=== PATIENT | female | born 1980 | race Caucasian/White ===

== ENCOUNTER 2016-08-22 19:20 | Emergency (ER) | payer OTHER ==
[2016-08-22] MEDS ORDERED: CLINDAMYCIN 150 MG CAPSULE PO STA (19:44)
[2016-08-22] MEDS ORDERED: HYDROcod/ACETAM 5/325 MG TABLET PO STA (19:44)
[2016-08-22] MEDS ORDERED: CLINDAMYCIN 150 MG CAPSULE PO ONE (19:47)
[2016-08-22] MEDS ORDERED: HYDROcod/ACETAM 5/325 MG TABLET ONE (19:47)
== END 2016-08-22 19:54 | disposition home or self-care (01) ==
DX: K02.9 Dental caries, unspecified (principal); K08.89 Other specified disorders of teeth and supporting structures
CPT/HCPCS: 99283; A9270

== ENCOUNTER 2016-12-05 19:40 | Outpatient (CLI) | payer OTHER | END 2016-12-05 19:41 | disposition home or self-care (01) | LOC: LAB 19:40 | PROVIDERS: ATTEND Pathology Neuropathology | DX: Z01.89 Encounter for other specified special examinations (principal) | CPT/HCPCS: 36415 ==

== ENCOUNTER 2017-01-26 18:45 | Emergency (ER) | payer OTHER ==
[2017-01-26 19:09] VITALS: BP 131/87
[2017-01-26] MEDS ORDERED: HYDROcod/ACETAM 5/325 MG TABLET PO STA (19:39)
[2017-01-26] MEDS ORDERED: DEXAMETHASONE 10 MG/ML VIAL PO STA (19:39)
--- NOTE | 2017-01-26 19:41 | ED Physician Documentation ---
PD HPI BACK PAIN - Stated complaint Stated Complaint: BACK PAIN - Chief complaint Chief Complaint: Back Pain - History obtained from History obtained from: Patient, Family - History of Present Illness Timing - onset: How many hours ago (6), Today Timing - duration: Hours (6) Timing - details: Gradual onset Pain level max: 7 Pain level now: 7 Location: Lower, Right, Left Quality: Pain, Spasm, Aching, Similar to prior episodes Associated symptoms: Numbness (mild R foot earlier, now resolved.), Other ( radiates down R leg). No: Fever, Weakness, Incontinent of urine, Unable to urinate, Hematuria, Incontinent of stool Improves with: Rest Worsened by: Movement, Lifting Contributing factors: Lifting Similar symptoms before: Diagnosis (low back pain) Recently seen: Not recently seen Review of Systems Constitutional: denies: Fever, Chills Respiratory: denies: Cough GI: denies: Nausea, Vomiting, Diarrhea : denies: Now EGA Skin: denies: Rash Musculoskeletal: denies: Neck pain PD PAST MEDICAL HISTORY - Past Medical History Cardiovascular: None Respiratory: None Neuro: Headache/migraine Endocrine/Autoimmune: None GI: None 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 : None HEENT: None Psych: None Musculoskeletal: None Derm: None - Past Surgical History Past Surgical History: Yes Ortho: Other - Present Medications Home Medications: Ambulatory Orders Medication Instructions Recorded Confirmed Propranolol [Inderal] 10 mg PO HS 06/26/13 01/26/17 Dicyclomine [Bentyl] 10 mg PO QID PRN #20 capsule 01/12/16 01/26/17 Ethynodiol D-Ethinyl Estradiol 1 tab PO DAILY 04/24/16 01/26/17 [Zovia 1-35E Tablet] Hydrocodone/Acetaminophen 1 - 2 each PO Q6H PRN #14 tablet 01/26/17 [Hydrocodon-Acetaminophen 5-325] - Allergies Allergies/Adverse Reactions: Allergies Allergy/AdvReac Type Severity Reaction Status Date / Time Penicillins Allergy Severe Rash Verified 01/26/17 19:09 amoxicillin [Amoxicillin] Allergy Mild Rash Verified 01/26/17 19:09 cyclobenzaprine HCl * AdvReac Unknown Verified 01/26/17 19:09 [From Flexeril] - Social History Does the pt smoke?: No Smoking Status: Never smoker Does the pt drink ETOH?: No Does the pt have substance abuse?: No - Immunizations Immunizations are current?: Yes - POLST Patient has POLST: No PD ED PE NORMAL - Vitals Vital signs reviewed: Yes - General General: Alert and oriented X 3, No acute distress, Well developed/nourished - HEENT HEENT: PERRL, Moist mucous membranes - Neck Neck: Supple, no meningeal sign, No bony TTP - Cardiac Cardiac: RRR, Strong equal pulses - Respiratory Respiratory: No respiratory distress, Clear bilaterally - Abdomen Abdomen: Soft, Non tender, Non distended - Back Back: No spinal TTP (No midline tenderness to palpation. There is paraspinal muscle spasm bilaterally.) - Derm Derm: Warm and dry - Extremities Extremities: Other (normal bilateral lower extremity patellar and ankle jerk reflexes. Normal great toe extension bilaterally) - Neuro Neuro: Alert and oriented X 3, No motor deficit, No sensory deficit - Psych Psych: Normal mood, Normal affect Results - Vitals Vitals: Vital Signs - 24 hr 01/26/17 19:07 Temperature 36.4 C L Heart Rate 82 Respiratory 18 Rate Blood Pressure 131/87 H O2 Saturation 99 Oxygen O2 Source Room air PD MEDICAL DECISION MAKING - ED course Complexity details: re-evaluated patient, considered differential (no cauda equina, no spinal epidural abscess, no fracture, no aortic dissection or evidence of aneursym rupture), d/w patient, d/w family ED course: Patient is a 36-year-old female with acute on chronic back pain. Appears to have a sciatic component of the right lower extremity. No loss of bowel or bladder control. No saddle anesthesia. No neurological deficits. Ambulating well. States [place] has worked in the past and will place her on this for home. No evidence of cauda equina, epidural abscess. Does not use IV drugs. No fevers. Patient counseled regarding signs and symptoms for which I believe and urgent re-evaluation would be necessary. Patient with good understanding of and agreement to plan and is comfortable going home at this time This document was made in part using voice recognition software. While efforts are made to proofread this document, sound alike and grammatical errors may occur. Departure - Departure Disposition: 01 Home, Self Care Clinical Impression: Sciatica Condition: Good Instructions: ED Sciatica Follow-Up: DEMARCO YEPEZ [Primary Care Provider] - Within 1 week Prescriptions: Hydrocodone/Acetaminophen [Hydrocodon-Acetaminophen 5-325] 1 - 2 each PO Q6H PRN #14 tablet PRN Reason: pain Comments: This should improve over the next few days. Return if you worsen. Do not drink alcohol or drive while on narcotic pain medicine. Note that many narcotic pain relievers also contain tylenol/acetaminophen. Please ensure that your total dose of acetaminophen from all sources does not exceed 3 grams (3000mg) per day. You may constipated on this medication, take a stool softener such as "Colace" twice a day while you are on it. Also recommend a fahr-gbo-pfgdzoe laxative such as senna or MiraLAX any day that you do not have a bowel movement. If you received narcotic pain medication in the emergency department, do not drive or operate machinery for the next 24 hours. Discharge Date/Time: 01/26/17 19:49
[2017-01-26] MEDS ORDERED: HYDROcod/ACETAM 5/325 MG TABLET ONE (19:42)
[2017-01-26] MEDS ORDERED: CHERRY SYRUP 10 ML UDC PO ONE (19:43)
[2017-01-26] MEDS ORDERED: DEXAMETHASONE 10 MG/ML VIAL ONE (19:43)
== END 2017-01-26 19:49 | disposition home or self-care (01) ==
LOC: ED 18:45
DX: M54.41 Lumbago with sciatica, right side (principal); G89.29 Other chronic pain
CPT/HCPCS: 99283; A9270

== ENCOUNTER 2017-02-19 19:07 | Emergency (ER) | payer OTHER ==
[2017-02-19 19:33] VITALS: BP 117/72
--- NOTE | 2017-02-19 20:30 | ED Physician Documentation ---
PD HPI UPPER EXT INJURY - Stated complaint Stated Complaint: L SHOULDER PAIN - Chief complaint Chief Complaint: Ext Problem - History obtained from History obtained from: Patient - History of Present Illness Location: Left, Shoulder Type of injury: Twist (She was walking her dog, who pulled on the leash suddenly and yanked the shoulder. Pain in the left scapular and suprascapular muscles area. 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 : None HEENT: None Psych: None Musculoskeletal: None Derm: None - Past Surgical History Past Surgical History: Yes Ortho: Other - Present Medications Home Medications: Ambulatory Orders Medication Instructions Recorded Confirmed Propranolol [Inderal] 10 mg PO HS 06/26/13 02/19/17 Dicyclomine [Bentyl] 10 mg PO QID PRN #20 capsule 01/12/16 02/19/17 Ethynodiol D-Ethinyl Estradiol 1 tab PO DAILY 04/24/16 02/19/17 [Zovia 1-35E Tablet] Dextroamphetamine/Amphetamine 10 mg PO DAILY 02/19/17 02/19/17 [Adderall 10 mg Tablet] - Allergies Allergies/Adverse Reactions: Allergies Allergy/AdvReac Type Severity Reaction Status Date / Time Penicillins Allergy Severe Rash Verified 02/19/17 19:33 amoxicillin [Amoxicillin] Allergy Mild Rash Verified 02/19/17 19:33 latex Allergy Hives Verified 02/19/17 20:33 cyclobenzaprine HCl * AdvReac Unknown Verified 02/19/17 19:33 [From Flexeril] - Social History Does the pt smoke?: No Smoking Status: Never smoker Does the pt drink ETOH?: No Does the pt have substance abuse?: No - Immunizations Immunizations are current?: Yes - POLST Patient has POLST: No PD ED PE NORMAL - Vitals Vital signs reviewed: Yes - General General: Alert and oriented X 3, No acute distress, Well developed/nourished - Neck Neck: Supple, no meningeal sign, No bony TTP - Back Back: No spinal TTP - Derm Derm: Normal color, Warm and dry - Extremities Extremities: Other (Muscle tenderness suprascapular area and to side of neck and to posterior shoulder. Not tender at AC joint. Rotator cuff movements at shoulder do not hurt much. Abduction of shoulder and pull of it hurts more. ) - Neuro Neuro: No motor deficit, No sensory deficit Results - Vitals Vitals: Vital Signs - 24 hr 02/19/17 19:30 Temperature 36.1 C L Heart Rate 78 Respiratory 16 Rate Blood Pressure 117/72 O2 Saturation 100 Oxygen O2 Source Room air - Rads (name of study) shoulder left Radiology: Prelim report reviewed, EMP read contemporaneously (no fracture nor dislocation) PD MEDICAL DECISION MAKING - ED course Complexity details: reviewed results (xray normal - she was concerned about fracture/dislocation and was seemed skeptical of my saying it was okay clinically, so got xray. ), considered differential (tender in suprascapular muscle area. Rotator cuff movements do not hurt as much. Presume more shoulder girdle muscles. ), d/w patient Departure - Departure Disposition: 01 Home, Self Care Clinical Impression: Left shoulder strain Qualifiers: Encounter type: initial encounter Qualified Code(s): S46.912A - Strain of unspecified muscle, fascia and tendon at shoulder and upper arm level, left arm , initial encounter Condition: Stable Record reviewed to determine appropriate education?: Yes Instructions: ED Sprain Shoulder Follow-Up: DEMARCO YEPEZ [Primary Care Provider] - Comments: Activity as able with the left shoulder. I will likely hurt for several days to a week. Ibuprofen or naproxen 2-3 times daily for the next several days. Add Tylenol or hydrocodone if needed for pain. Follow-up with her primary care if not better over the next week. Discharge Date/Time: 02/19/17 21:12
[2017-02-19] MEDS ORDERED: HYDROcod/ACETAM 5/325 MG TABLET PO STA (20:43)
[2017-02-19] MEDS ORDERED: IBUPROFEN 400 MG TABLET PO STA (20:43)
[2017-02-19] MEDS ORDERED: HYDROcod/ACET 5/325 Prepack 6 PO ONE ×2 (21:01→21:08)
[2017-02-19] MEDS ORDERED: IBUPROFEN 400 MG TABLET PO ONE (21:04)
[2017-02-19] MEDS ORDERED: HYDROcod/ACETAM 5/325 MG TABLET ONE (21:05)
--- NOTE | 2017-02-19 21:11 | XRAY Preliminary Report ---
Exam: XR Shoulder 3 View LT IMPRESSION: No acute disease. [facility] SITE ID: [id number]
--- NOTE | 2017-02-19 21:14 | XRAY Report ---
EXAM: LEFT SHOULDER RADIOGRAPHY EXAM DATE: 02/19/2017 08:57 PM. CLINICAL HISTORY: Shoulder yanked by dog on leash. COMPARISON: 12/13/2015. TECHNIQUE: 3 views. FINDINGS: Bones: Old clavicle fracture. No acute fracture or other bone lesion. Joints: The glenohumeral and acromioclavicular joints are normal. Soft tissues: Unremarkable. Clear visualized lung. IMPRESSION: No acute disease. [facility] Referring Provider Line: [phone] SITE ID: [id number]
== END 2017-02-19 21:12 | disposition home or self-care (01) ==
LOC: ED 19:07
DX: S46.912A Strain of unspecified muscle, fascia and tendon at shoulder and upper arm level, left arm, initial encounter (principal); X50.1XXA Overexertion from prolonged static or awkward postures, initial encounter; Y93.K1 Activity, walking an animal
CPT/HCPCS: 73030; 99283; A9270

== ENCOUNTER 2017-04-06 19:03 | Emergency (ER) | payer OTHER ==
--- NOTE | 2017-04-06 19:55 | XRAY Preliminary Report ---
Exam: XR Toe(s) RT IMPRESSION: 1. Mild to moderate right first toe swelling. 2. No fracture. 3. Normal alignment. [facility] SITE ID: [id number]
--- NOTE | 2017-04-06 20:50 | XRAY Report ---
EXAM: RIGHT FIRST TOE RADIOGRAPHY EXAM DATE: 04/06/2017 07:33 PM. CLINICAL HISTORY: Right great toe injury. COMPARISON: None. TECHNIQUE: 3 views. FINDINGS: Bones: Normal. No fracture or bone lesion. Joints: Normal. No subluxations. Soft Tissues: Mild swelling in the right first toe. IMPRESSION: 1. Mild to moderate right first toe swelling. 2. No fracture. 3. Normal alignment. [facility] Referring Provider Line: [phone] SITE ID: [id number]
--- NOTE | 2017-04-06 22:09 | ED Physician Documentation ---
PD HPI LOWER EXT INJURY - Stated complaint Stated Complaint: TOE PAIN - Chief complaint Chief Complaint: Ext Problem - History obtained from History obtained from: Patient - History of Present Illness PD HPI LOW EXT INJURY LOCATION: Left, Toe (great toe) Type of injury: Blunt / blow Where injury occurred: Home Timing - onset: Today Timing - duration: Hours Timing - details: Abrupt onset, Still present Improved by: Rest Worsened by: Moving, Palpating Associated symptoms: Swelling Similar symptoms before: Has not had sx before Recently seen: Not recently seen - Additional information Additional information: 36-year-old female has had an ingrown toenail for the past 5-6 weeks and she has been bumping it and has had pain associated with it each time she bumps it. She has had swelling and tonight she bumped it and has come to the emergency department because of the pain. She has an appointment to see Dr. Amin at the end of the week for this toe. She has not had an ingrown toenail previously. 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 : None HEENT: None Psych: None Musculoskeletal: None Derm: None Other Past Medical History: chronic back pain - Past Surgical History Past Surgical History: Yes Ortho: Other - Present Medications Home Medications: Ambulatory Orders Medication Instructions Recorded Confirmed Propranolol [Inderal] 10 mg PO HS 06/26/13 04/06/17 Ethynodiol D-Ethinyl Estradiol 1 tab PO DAILY 04/24/16 04/06/17 [Zovia 1-35E Tablet] Dextroamphetamine/Amphetamine 10 mg PO DAILY 02/19/17 04/06/17 [Adderall 10 mg Tablet] Sulfamethoxazole/Trimethoprim 1 each PO BID #8 tablet 04/06/17 [Sulfamethoxazole-Tmp Ds Tablet] - Allergies Allergies/Adverse Reactions: Allergies Allergy/AdvReac Type Severity Reaction Status Date / Time Penicillins Allergy Severe Rash Verified 04/06/17 21:21 amoxicillin [Amoxicillin] Allergy Mild Rash Verified 09/18/17 21:21 latex Allergy Hives Verified 04/06/17 21:21 cyclobenzaprine HCl * AdvReac Unknown Verified 04/06/17 21:21 [From Flexeril] - Social History Does the pt smoke?: No Smoking Status: Never smoker Does the pt drink ETOH?: No Does the pt have substance abuse?: No - Immunizations Immunizations are current?: Yes - POLST Patient has POLST: No PD ED PE NORMAL - Vitals Vital signs reviewed: Yes (Hypertensive) - General General: No acute distress, Well developed/nourished - HEENT HEENT: Atraumatic, PERRL - Respiratory Respiratory: No respiratory distress - Derm Derm: Normal color, Warm and dry, No rash - Extremities Extremities: No deformity, No edema, Other (There is an ingrown toenail on the right great toe. There is swelling to the medial surface of the great toe with some erythema and some drainage.) - Neuro Neuro: No motor deficit, No sensory deficit - Psych Psych: Normal mood, Normal affect Results - Vitals Vitals: Vital Signs - 24 hr 04/06/17 19:07 Temperature 37.0 C Heart Rate 81 Respiratory 18 Rate Blood Pressure 138/84 H O2 Saturation 100 Oxygen O2 Source Room air - Rads (name of study) Toes Radiology: Prelim report reviewed (Impression: 1. Mild to moderate right first toe swelling. 2. No fracture. 3. Normal alignment.), EMP read indepedently, See rad report Procedures - General procedure General procedure: Great toe sectioning. A digital block is performed with 0.5% bupivacaine to the right great toe utilizing 5 mL's of bupivacaine. The toe is cleansed with Hibiclens rinsed with saline draped in a sterile fashion and the medial aspect of the toenail was sectioned and removed. PD MEDICAL DECISION MAKING - ED course Complexity details: reviewed results, re-evaluated patient, considered differential, d/w patient, d/w family ED course: 36-year-old female with an ingrown toenail option for sectioning of the toenail tonight and this is done in the emergency department. We will put her on some antibiotic. Departure - Departure Disposition: 01 Home, Self Care Clinical Impression: Ingrown toenail Condition: Stable Instructions: ED Ingrown Toenail Excised Follow-Up: DEMARCO AMIN [Primary Care Provider] - Prescriptions: Sulfamethoxazole/Trimethoprim [Sulfamethoxazole-Tmp Ds Tablet] 1 each PO BID #8 tablet Comments: Today in the Emergency Department your blood pressure was elevated. This can happen from the stress of the visit itself, from a current illness or circumstance or from uncontrolled hypertension. If you take blood pressure medications take your usual mediations, have your blood pressure re-checked in an appropriate setting and follow up any elevation with your primary care doctor.
[2017-04-06] MEDS ORDERED: BUPIVACAINE 0.5% PF 30 ML VIAL ONE (22:36)
[2017-04-06] MEDS ORDERED: SULFAM/TRIM 800/160 Prepack 2 PO ONE ×2 (22:55→23:02)
[2017-04-06 23:06] VITALS: BP 128/80
== END 2017-04-06 23:15 | disposition home or self-care (01) ==
LOC: ED 19:03
DX: L60.0 Ingrowing nail (principal); R03.0 Elevated blood-pressure reading, without diagnosis of hypertension
CPT/HCPCS: 11765; 73660; 99283

== ENCOUNTER 2017-04-30 20:01 | Emergency (ER) | payer OTHER ==
[2017-04-30 20:26] LABS: BILIRUBIN,URINE NEGATIVE (NEGATIVE)
[2017-04-30 20:27] LABS: UA CHARGE (STRIP ONLY) YES; UR CULTURE IF IND NOT INDICATED
[2017-04-30 20:31] LABS: HCG UR QUAL NEGATIVE
[2017-04-30] MEDS ORDERED: KETOROLAC 60 MG/2 ML VIAL IM STA (20:46)
[2017-04-30] MEDS ORDERED: ONDANSETRON ODT 4 MG TABLET TL STA (20:46)
[2017-04-30] MEDS ORDERED: SUMAtriptan 6 MG/0.5 ML VIAL SUBQ STA (20:46)
[2017-04-30] MEDS ORDERED: SUMAtriptan 25 MG TABLET PO STA (20:51)
[2017-04-30 21:05] LABS: BASOPHILS % (AUTO) 0.4 %; EOSINOPHILS # (AUTO) 0.1 10^3/uL (0.0-0.7); EOSINOPHILS % (AUTO) 0.8 %; HCT - HEMATOCRIT 36.7 % (37.0-47.0); HGB - HEMOGLOBIN 12.3 g/dL (12.0-16.0); LYMPHOCYTES # (AUTO) 3.3 10^3/uL (1.5-3.5); LYMPHOCYTES % (AUTO) 37.3 %; MEAN CORPUSCULAR HEMOGLOBIN 30.2 pg (27.0-31.0); MEAN CORPUSCULAR HGB CONC 33.6 g/dL (32.0-36.0); MEAN PLATELET VOLUME 7.1 fL (7.9-10.8); MONOCYTES # (AUTO) 0.4 10^3/uL (0.0-1.0); NEUTROPHILS % (AUTO) 56.5 %; RED BLOOD COUNT 4.08 10^6/uL (4.20-5.40); RED CELL DISTRIBUTION WIDTH 13.1 % (12.0-15.0); UNCORRECTED WHITE BLOOD COUNT 8.9 x10^3/uL; WHITE BLOOD COUNT 8.9 x10^3/uL (4.8-10.8)
[2017-04-30] MEDS ORDERED: KETOROLAC 60 MG/2 ML VIAL ONE (21:07)
[2017-04-30] MEDS ORDERED: ONDANSETRON ODT 4 MG TABLET ONE (21:07)
[2017-04-30] MEDS ORDERED: SUMAtriptan 25 MG TABLET PO ONE (21:07)
[2017-04-30] MEDS ORDERED: SODIUM CHLORIDE FLUSH 0.9% 10 ML SYRINGE IVP ONE (21:09)
[2017-04-30 21:13] LABS: CALCIUM 9.1 mg/dL (8.5-10.3); CREATININE 0.7 mg/dL (0.4-1.0); POTASSIUM 3.4 mmol/L (3.5-5.0)
[2017-04-30] MEDS ORDERED: HYDROcod/ACETAM 5/325 MG TABLET PO STA (22:09)
[2017-04-30] MEDS ORDERED: HYDROcod/ACETAM 5/325 MG TABLET ONE (22:29)
[2017-04-30 22:36] VITALS: BP 141/62
--- NOTE | 2017-05-01 05:08 | ED Physician Documentation ---
History of Present Illness - Stated complaint Stated Complaint: ABD/BACK/HEAD PX - Chief complaint Chief Complaint: Abd Pain - History obtained from History obtained from: Patient - History of Present Illness Timing: Other (headache x 1 week abd. pain radiating to flank and back x 2-3 days) Pain level now: 5 Improved by: no ameliorating factors Worsened by: no exacerbating factors - Additonal information Additional information: c/o headache x 1 week, similar to previous migraine headaches but lasting longer than usual. She also c/o LLQ, left flank, and left back (paralumbar) pain x 2-3 days. Nausea without emesis. Urinary frequency. Patient took maxalt for headache without relief. Review of Systems Constitutional: denies: Fever, Chills, Sweats Eyes: reports: Reviewed and negative Cardiac: reports: Reviewed and negative Respiratory: reports: Reviewed and negative GI: reports: Abdominal Pain, Nausea. denies: Vomiting : reports: Frequency. denies: Dysuria Musculoskeletal: reports: Back pain Neurologic: reports: Headache. 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 HEENT: None Psych: None Musculoskeletal: None Derm: None Other Past Medical History: back injuries - Past Surgical History Past Surgical History: Yes Ortho: Other - Present Medications Home Medications: Ambulatory Orders Medication Instructions Recorded Confirmed Propranolol [Inderal] 10 mg PO HS 06/26/13 04/06/17 Ethynodiol D-Ethinyl Estradiol 1 tab PO DAILY 04/24/16 04/06/17 [Zovia 1-35E Tablet] Dextroamphetamine/Amphetamine 10 mg PO DAILY 02/19/17 04/06/17 [Adderall 10 mg Tablet] Sulfamethoxazole/Trimethoprim 1 each PO BID #8 tablet 04/06/17 [Sulfamethoxazole-Tmp Ds Tablet] Hydrocodone/Acetaminophen 1 - 2 each PO Q6HR PRN #10 tablet 04/30/17 [Hydrocodon-Acetaminophen 5-325] Ondansetron HCl [Zofran] 4 mg PO Q6HR PRN #14 tablet 04/30/17 Sumatriptan Succinate [Imitrex] 50 mg PO ONCE PRN #14 tablet 04/30/17 - Allergies Allergies/Adverse Reactions: Allergies Allergy/AdvReac Type Severity Reaction Status Date / Time Penicillins Allergy Severe Rash Verified 04/30/17 20:11 amoxicillin [Amoxicillin] Allergy Mild Rash Verified 04/30/17 20:11 latex Allergy Hives Verified 04/30/17 20:11 cyclobenzaprine HCl * AdvReac Unknown Verified 04/30/17 20:11 [From Flexeril] - Social History Does the pt smoke?: No Smoking Status: Never smoker Does the pt drink ETOH?: No Does the pt have substance abuse?: No - Immunizations Immunizations are current?: Yes - POLST Patient has POLST: No PD ED PE NORMAL - Vitals Vital signs reviewed: Yes - General General: Alert and oriented X 3, No acute distress, Well developed/nourished, Other (NAD, eating candy when I first enter the room) - HEENT HEENT: PERRL, EOMI, Moist mucous membranes - Neck Neck: Supple, no meningeal sign - Cardiac Cardiac: RRR, No murmur - Respiratory Respiratory: No respiratory distress, Clear bilaterally - Abdomen Abdomen: Soft, Non distended, Other (mild LLQ tenderness without rebound or guarding) - Back Back: No CVA TTP - Derm Derm: Normal color, Warm and dry, No rash Results - Vitals Vitals: Vital Signs - 24 hr 04/30/17 04/30/17 20:08 22:34 Temperature 36.5 C 36.0 C L Heart Rate 67 67 Respiratory 18 20 Rate Blood Pressure 129/88 H 141/62 H O2 Saturation 98 100 Oxygen O2 Source Room air - Labs Labs: Laboratory Tests 04/30/17 04/30/17 04/30/17 20:19 20:19 20:57 WBC 8.9 RBC 4.08 L Hgb 12.3 Hct 36.7 L MCV 90.0 MCH 30.2 MCHC 33.6 RDW 13.1 Plt Count 348 MPV 7.1 L Neut # 5.0 Lymph # 3.3 [place] # 0.4 Eos # 0.1 Baso # 0.0 Absolute Nucleated RBC 0.00 Nucleated RBC % 0.0 Sodium Potassium Chloride Carbon Dioxide Anion Gap BUN Creatinine Estimated GFR (MDRD) Glucose Calcium Urine Color YELLOW Urine Clarity CLEAR Urine pH 6.0 Ur Specific [place] >=1.030 H >=1.030 H Urine Protein NEGATIVE Urine Glucose (UA) NEGATIVE Urine Ketones NEGATIVE Urine Occult Blood TRACE-INTA Urine Nitrite NEGATIVE Urine Bilirubin NEGATIVE Urine Urobilinogen 0.2 (NORMAL) Ur Leukocyte Esterase NEGATIVE Ur Microscopic Review NOT INDICATED Urine Culture Comments NOT INDICATED Urine HCG, Qual NEGATIVE 04/30/17 20:57 WBC RBC Hgb Hct MCV MCH MCHC RDW Plt Count MPV Neut # Lymph # [place] # Eos # Baso # Absolute Nucleated RBC Nucleated RBC % Sodium 135 Potassium 3.4 L Chloride 101 Carbon Dioxide 22 Anion Gap 12.0 BUN 13 Creatinine 0.7 Estimated GFR (MDRD) 95 Glucose 103 H Calcium 9.1 Urine Color Urine Clarity Urine pH Ur Specific [place] Urine Protein Urine Glucose (UA) Urine Ketones Urine Occult Blood Urine Nitrite Urine Bilirubin Urine Urobilinogen Ur Leukocyte Esterase Ur Microscopic Review Urine Culture Comments Urine HCG, Qual PD MEDICAL DECISION MAKING - ED course Complexity details: reviewed old records, reviewed results, re-evaluated patient , considered differential, d/w patient Departure - Departure Disposition: Home, Self Care Clinical Impression: Abdominal pain Qualifiers: Abdominal location: left lower quadrant Qualified Code(s): R10.32 - Left lower quadrant pain Headache Qualifiers: Headache type: unspecified Headache chronicity pattern: acute headache Intractability: not intractable Qualified Code(s): R51 - Headache Condition: Good Instructions: ED Abdominal Pain Unkn Cause, ED Headache Migraine Follow-Up: DEMARCO YEPEZ [Primary Care Provider] - Prescriptions: Hydrocodone/Acetaminophen [Hydrocodon-Acetaminophen 5-325] 1 - 2 each PO Q6HR PRN #10 tablet PRN Reason: Pain Ondansetron HCl [Zofran] 4 mg PO Q6HR PRN #14 tablet PRN Reason: Nausea / Vomiting Sumatriptan Succinate [Imitrex] 50 mg PO ONCE PRN #14 tablet PRN Reason: Migraine Discharge Date/Time: 04/30/17 22:34
== END 2017-04-30 22:34 | disposition home or self-care (01) ==
LOC: ED 20:01
DX: R10.32 Left lower quadrant pain (principal); R51 Headache
CPT/HCPCS: 36415; 80048; 81003; 81025; 85025; 99283; A9270; Q0162; 81001; 87086

== ENCOUNTER 2017-07-07 18:44 | Emergency (ER) | payer OTHER ==
[2017-07-07 18:54] VITALS: BP 153/108
--- NOTE | 2017-07-07 19:14 | ED Physician Documentation ---
PD HPI HEENT - Stated complaint Stated Complaint: TOOTH PX - Chief complaint Chief Complaint: Heent - History obtained from History obtained from: Patient - History of Present Illness Timing - onset: Other (Very painful tooth right mandible today, she had an implant there which broke. No facial swelling or fevers. 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 HEENT: None Psych: None Musculoskeletal: None Derm: None - Past Surgical History Past Surgical History: Yes Ortho: Other - Present Medications Home Medications: Ambulatory Orders Medication Instructions Recorded Confirmed Propranolol [Inderal] 10 mg PO HS 06/26/13 07/07/17 Ethynodiol D-Ethinyl Estradiol 1 tab PO DAILY 04/24/16 07/07/17 [Zovia 1-35E Tablet] Dextroamphetamine/Amphetamine 10 mg PO DAILY 02/19/17 07/07/17 [Adderall 10 mg Tablet] Ondansetron HCl [Zofran] 4 mg PO Q6HR PRN #14 tablet 04/30/17 07/07/17 Sumatriptan Succinate [Imitrex] 50 mg PO ONCE PRN #14 tablet 04/30/17 07/07/17 Clindamycin [Cleocin] 300 mg PO Q6H 10 Days capsule 07/07/17 HYDROcod/ACETAM 5/325 [[place] 5/325] 1 - 2 ea PO Q6H PRN #15 tablet 07/07/17 - Allergies Allergies/Adverse Reactions: Allergies Allergy/AdvReac Type Severity Reaction Status Date / Time Penicillins Allergy Severe Rash Verified 07/07/17 18:54 amoxicillin [Amoxicillin] Allergy Mild Rash Verified 07/07/17 18:54 latex Allergy Hives Verified 07/07/17 18:54 cyclobenzaprine HCl * AdvReac Unknown Verified 07/07/17 18:54 [From Flexeril] - Social History Does the pt smoke?: No Smoking Status: Never smoker Does the pt drink ETOH?: No Does the pt have substance abuse?: No - Immunizations Immunizations are current?: Yes - POLST Patient has POLST: No PD ED PE NORMAL - Vitals Vital signs reviewed: Yes - General General: Alert and oriented X 3, No acute distress - HEENT HEENT: Other (Cavity down to the gumline, right mandibular premolar with an implant that is broken off in place and the tooth is tender but there is no gingival swelling or sublingual edema, no trismus.) - Neuro Neuro: Alert and oriented X 3, Normal speech - Psych Psych: Normal mood, Normal affect Results - Vitals Vitals: Vital Signs - 24 hr 07/07/17 18:52 Temperature 36.3 C L Heart Rate 83 Respiratory 16 Rate Blood Pressure 153/108 H O2 Saturation 99 Oxygen O2 Source Room air Departure - Departure Disposition: Home, Self Care Clinical Impression: Tooth abscess Condition: Good Record reviewed to determine appropriate education?: Yes Instructions: ED Abscess Dental Prescriptions: Clindamycin [Cleocin] 300 mg PO Q6H 10 Days capsule HYDROcod/ACETAM 5/325 [[place] 5/325] 1 - 2 ea PO Q6H PRN #15 tablet PRN Reason: Pain Comments: Follow-up with the oral surgeon as scheduled. Return if worse. Your blood pressure was elevated today on check into the emergency department. This does not mean that you have hypertension, it is a common phenomenon to come to the emergency department and have elevated blood pressure. I recommend that you see your primary care physician within the week to have it rechecked when you are feeling better. Do not drink or drive while taking narcotic pain medication. Note that many narcotic pain relievers also contain Tylenol/acetaminophen. Please ensure that your total dose of acetaminophen from all sources does not exceed 3 g (3000 mg) per day. You may get constipated while on this medication. Take a stool softener such as Colace twice a day while you are on it. Also add an cryy-mon-ywcaqvt laxative such as senna or MiraLAX on any day that you do not have a bowel movement. If you received a narcotic pain medication or sedative while in the emergency department, do not drive for the next 24 hours.
== END 2017-07-07 19:15 | disposition home or self-care (01) ==
LOC: ED 18:44
DX: K04.7 Periapical abscess without sinus (principal); R03.0 Elevated blood-pressure reading, without diagnosis of hypertension
CPT/HCPCS: 99283

== ENCOUNTER 2017-08-03 18:39 | Emergency (ER) | payer OTHER ==
[2017-08-03] MEDS ORDERED: CLINDAMYCIN 150 MG CAPSULE PO STA (18:50)
[2017-08-03] MEDS ORDERED: HYDROcod/ACETAM 5/325 MG TABLET PO STA (18:50)
--- NOTE | 2017-08-03 18:54 | ED Physician Documentation ---
History of Present Illness - Stated complaint Stated Complaint: MOUTH PX/POST OP CHECK - Chief complaint Chief Complaint: Heent - History obtained from History obtained from: Patient - History of Present Illness Timing: Other (Postop day 5 from a dental extraction, right mandibular premolar and increased pain last 2 days radiating up to the year without fevers.) Review of Systems Constitutional: reports: Sweats. 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 HEENT: None Psych: None Musculoskeletal: None Derm: None - Past Surgical History Past Surgical History: Yes Ortho: Other - Present Medications Home Medications: Ambulatory Orders Medication Instructions Recorded Confirmed Propranolol [Inderal] 10 mg PO HS 06/26/13 07/07/17 Ethynodiol D-Ethinyl Estradiol 1 tab PO DAILY 04/24/16 07/07/17 [Zovia 1-35E Tablet] Dextroamphetamine/Amphetamine 10 mg PO DAILY 02/19/17 07/07/17 [Adderall 10 mg Tablet] Ondansetron HCl [Zofran] 4 mg PO Q6HR PRN #14 tablet 04/30/17 07/07/17 Sumatriptan Succinate [Imitrex] 50 mg PO ONCE PRN #14 tablet 04/30/17 07/07/17 Clindamycin [Cleocin] 300 mg PO Q6H 10 Days capsule 07/07/17 HYDROcod/ACETAM 5/325 [[place] 5/325] 1 - 2 ea PO Q6H PRN #15 tablet 07/07/17 Clindamycin [Cleocin] 300 mg PO Q6H 10 Days capsule 08/03/17 HYDROcod/ACETAM 5/325 [[place] 5/325] 1 - 2 ea PO Q6H PRN #15 tablet 08/03/17 - Allergies Allergies/Adverse Reactions: Allergies Allergy/AdvReac Type Severity Reaction Status Date / Time Penicillins Allergy Severe Rash Verified 08/03/17 18:44 amoxicillin [Amoxicillin] Allergy Mild Rash Verified 08/03/17 18:44 latex Allergy Hives Verified 08/03/17 18:44 cyclobenzaprine HCl * AdvReac Unknown Verified 08/03/17 18:44 [From Flexeril] - Social History Does the pt smoke?: No Smoking Status: Never smoker Does the pt drink ETOH?: No Does the pt have substance abuse?: No - Immunizations Immunizations are current?: Yes - POLST Patient has POLST: No PD ED PE NORMAL - Vitals Vital signs reviewed: Yes - General General: Alert and oriented X 3, No acute distress - HEENT HEENT: Other (Right mandibular premolar is surgically absent with dry socket but no facial swelling or trismus.) - Neck Neck: Supple, no meningeal sign, No bony TTP - Neuro Neuro: Alert and oriented X 3, Normal speech - Psych Psych: Normal mood, Normal affect Results - Vitals Vitals: Vital Signs - 24 hr 08/03/17 18:42 Temperature 36.7 C Heart Rate 67 Respiratory 18 Rate Blood Pressure 136/87 H O2 Saturation 98 Oxygen O2 Source Room air Procedures - General procedure General procedure: The socket was packed with dry socket paste. Departure - Departure Disposition: Home, Self Care Clinical Impression: Dry socket Condition: Good Record reviewed to determine appropriate education?: Yes Instructions: ED Socket Dry Prescriptions: Clindamycin [Cleocin] 300 mg PO Q6H 10 Days capsule HYDROcod/ACETAM 5/325 [[place] 5/325] 1 - 2 ea PO Q6H PRN #15 tablet PRN Reason: Pain Comments: Call your oral surgeon tomorrow for follow-up. Return if worse. Your blood pressure was elevated today on check into the emergency department. This does not mean that you have hypertension, it is a common phenomenon to come to the emergency department and have elevated blood pressure. I recommend that you see your primary care physician within the week to have it rechecked when you are feeling better. Do not drink or drive while taking narcotic pain medication. Note that many narcotic pain relievers also contain Tylenol/acetaminophen. Please ensure that your total dose of acetaminophen from all sources does not exceed 3 g (3000 mg) per day. You may get constipated while on this medication. Take a stool softener such as Colace twice a day while you are on it. Also add an [id number]-uyl-iedqetu laxative such as senna or MiraLAX on any day that you do not have a bowel movement. If you received a narcotic pain medication or sedative while in the emergency department, do not drive for the next 24 hours.
[2017-08-03 19:06] VITALS: BP 123/81
== END 2017-08-03 19:07 | disposition home or self-care (01) ==
LOC: ED 18:39
DX: M27.3 Alveolitis of jaws (principal); Z98.818 Other dental procedure status; K08.409 Partial loss of teeth, unspecified cause, unspecified class; R03.0 Elevated blood-pressure reading, without diagnosis of hypertension
CPT/HCPCS: 99283; A9270

== ENCOUNTER 2017-10-13 18:40 | Emergency (ER) | payer OTHER ==
--- NOTE | 2017-10-13 20:51 | ED Physician Documentation ---
PD HPI BACK INJURY - Stated complaint Stated Complaint: BACK PX/INJ - History obtained from History obtained from: Patient - History of Present Illness Location: Right, Left, Lower Type of injury: Fall (she says foot slipped on stairs as walking down, she fell onto her buttock and low back area. Pain in lumbar area. Has had some pains there in the past and Rx with muscle relaxants and NSAIDs. Had Zanaflex recent past which worked well.) Where injury occurred: Home Timing - onset: Today Timing - details: Abrupt onset, Still present Quality: Pain, Spasm Worsened by: Moving (bending and twisting) Associated symptoms: No: Fever, Weakness, Numbness, Incontinent of urine Contributing factors: No: Work related Similar symptoms before: No diagnosis (lumbar strain) Recently seen: Not recently seen Review of Systems Constitutional: denies: Fever, Chills Nose: denies: Rhinorrhea / runny nose, Congestion Throat: denies: Sore throat Cardiac: denies: Chest pain / pressure Respiratory: denies: Cough GI: denies: Abdominal Pain : denies: Incontinent Musculoskeletal: reports: Back pain. 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 HEENT: None Psych: None Musculoskeletal: None Derm: None - Past Surgical History Past Surgical History: Yes Ortho: Other - Present Medications Home Medications: Ambulatory Orders Medication Instructions Recorded Confirmed Propranolol [Inderal] 10 mg PO HS 06/26/13 07/07/17 Ethynodiol D-Ethinyl Estradiol 1 tab PO DAILY 04/24/16 07/07/17 [Zovia 1-35E Tablet] Ondansetron HCl [Zofran] 4 mg PO Q6HR PRN #14 tablet 04/30/17 07/07/17 Sumatriptan Succinate [Imitrex] 50 mg PO ONCE PRN #14 tablet 04/30/17 07/07/17 Dexamethasone [Decadron] 4 mg PO DAILY #5 tablet 10/13/17 Naproxen 375 mg PO BID #20 tablet 10/13/17 Oxycodone HCl/Acetaminophen 1 each PO Q6H PRN #20 tablet 10/13/17 [Percocet 5-325 mg Tablet] tiZANidine [Zanaflex] 4 mg PO Q8H PRN #25 tablet 10/13/17 - Allergies Allergies/Adverse Reactions: Allergies Allergy/AdvReac Type Severity Reaction Status Date / Time Penicillins Allergy Severe Rash Verified 10/13/17 18:49 amoxicillin [Amoxicillin] Allergy Mild Rash Verified 10/13/17 18:49 latex Allergy Hives Verified 10/13/17 18:49 cyclobenzaprine HCl * AdvReac Unknown Verified 10/13/17 18:49 [From Flexeril] - Social History Does the pt smoke?: No Smoking Status: Never smoker Does the pt drink ETOH?: No Does the pt have substance abuse?: No - Immunizations Immunizations are current?: Yes - POLST Patient has POLST: No PD ED PE NORMAL - Vitals Vital signs reviewed: Yes - General General: Alert and oriented X 3, Well developed/nourished, Other (seems uncomfortable) - HEENT HEENT: Atraumatic - Neck Neck: No bony TTP - Abdomen Abdomen: Soft, Non tender - Back Back: No CVA TTP, No spinal TTP, Other (tender lower back muscles and in SI areas. Not tender lower at tailbone. ) - Derm Derm: Normal color, Warm and dry - Neuro Neuro: Alert and oriented X 3, No motor deficit, No sensory deficit, Other ( normal knee reflexes. ) Results - Vitals Vitals: Oxygen O2 Source Room air PD MEDICAL DECISION MAKING - ED course Complexity details: reviewed old records, considered differential (low back pain without red flags. Will treat as muscular. ), d/w patient Departure - Departure Disposition: 01 Home, Self Care Clinical Impression: Low back strain Qualifiers: Encounter type: initial encounter Qualified Code(s): S39.012A - Strain of muscle, fascia and tendon of lower back, initial encounter Condition: Stable Record reviewed to determine appropriate education?: Yes Instructions: ED Sprain Strain Lumbar Follow-Up: DEMARCO YEPEZ [Primary Care Provider] - Prescriptions: Dexamethasone [Decadron] 4 mg PO DAILY #5 tablet Naproxen 375 mg PO BID #20 tablet Oxycodone HCl/Acetaminophen [Percocet 5-325 mg Tablet] 1 each PO Q6H PRN #20 tablet PRN Reason: Pain tiZANidine [Zanaflex] 4 mg PO Q8H PRN #25 tablet PRN Reason: Spasms Comments: Heat and gentle stretching for the low back. Local physical treatment such as massage, chiropractic, physical therapy are all good. Naproxen twice daily for the next 7-10 days. Decadron also for inflammation daily for 5 more days. Tizanidine if needed for muscle spasms. Add Tylenol or Percocet if needed for pains. Recheck if not improving over the next several days to week. Discharge Date/Time: 10/13/17 22:04
[2017-10-13] MEDS ORDERED: HYDROmorphone 1 MG/ML CARPUJECT IM STA (21:10)
[2017-10-13] MEDS ORDERED: IBUPROFEN 600 MG TABLET PO STA (21:10)
[2017-10-13] MEDS ORDERED: METHOCARBAMOL 500 MG TABLET PO STA (21:10)
[2017-10-13 21:50] VITALS: BP 125/88
[2017-10-13] MEDS ORDERED: oxyCODONE/ACET 5/325 Prepack 4 PO STA (21:55)
== END 2017-10-13 22:04 | disposition home or self-care (01) ==
LOC: ED 18:40
DX: S39.012A Strain of muscle, fascia and tendon of lower back, initial encounter (principal); W10.9XXA Fall (on) (from) unspecified stairs and steps, initial encounter; Y92.009 Unspecified place in unspecified non-institutional (private) residence as the place of occurrence of the external cause
CPT/HCPCS: 96372; 99283; A9270; J1170

== ENCOUNTER 2017-10-27 21:05 | Emergency (ER) | payer OTHER ==
[2017-10-27] MEDS ORDERED: ACETAMINOPHEN 500 MG TABLET PO STA (23:41)
[2017-10-27] MEDS ORDERED: diazePAM 5 MG TABLET PO STA (23:41)
--- NOTE | 2017-10-27 23:41 | ED Physician Documentation ---
PD HPI BACK PAIN - Stated complaint Stated Complaint: BACK PAIN - Chief complaint Chief Complaint: Back Pain - History obtained from History obtained from: Patient, Family - History of Present Illness Timing - onset: Today Timing - details: Abrupt onset, Still present Location: Upper, Left Quality: Pain, Spasm Associated symptoms: No: Fever, Weakness, Numbness Similar symptoms before: Work up / diagnostics, Treatment Recently seen: Emergency Dept - Additional information Additional information: Patient is a 37 year old female with a history of back pain who is presenting to the emergency department for different back pain. Patient states that she was cleaning at the house and twisted her upper back. Patient denies any trauma or other injury. 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 HEENT: None Psych: None Musculoskeletal: None Derm: None - Past Surgical History Past Surgical History: Yes Ortho: Other - Present Medications Home Medications: Ambulatory Orders Medication Instructions Recorded Confirmed Propranolol [Inderal] 10 mg PO HS 06/26/13 07/07/17 Ethynodiol D-Ethinyl Estradiol 1 tab PO DAILY 04/24/16 07/07/17 [Zovia 1-35E Tablet] Ondansetron HCl [Zofran] 4 mg PO Q6HR PRN #14 tablet 04/30/17 07/07/17 Sumatriptan Succinate [Imitrex] 50 mg PO ONCE PRN #14 tablet 04/30/17 07/07/17 Dexamethasone [Decadron] 4 mg PO DAILY #5 tablet 10/13/17 Naproxen 375 mg PO BID #20 tablet 10/13/17 Oxycodone HCl/Acetaminophen 1 each PO Q6H PRN #20 tablet 10/13/17 [Percocet 5-325 mg Tablet] tiZANidine [Zanaflex] 4 mg PO Q8H PRN #25 tablet 10/13/17 diazePAM [Valium] 5 - 10 mg PO TID PRN #10 tablet 10/28/17 - Allergies Allergies/Adverse Reactions: Allergies Allergy/AdvReac Type Severity Reaction Status Date / Time Penicillins Allergy Severe Rash Verified 10/27/17 21:29 amoxicillin [Amoxicillin] Allergy Mild Rash Verified 10/27/17 21:29 latex Allergy Hives Verified 10/27/17 21:29 cyclobenzaprine HCl * AdvReac Unknown Verified 10/27/17 21:29 [From Flexeril] - Social History Does the pt smoke?: No Smoking Status: Never smoker Does the pt drink ETOH?: No Does the pt have substance abuse?: No - Immunizations Immunizations are current?: Yes - POLST Patient has POLST: No PD ED PE NORMAL - Vitals Vital signs reviewed: Yes - General General: Alert and oriented X 3, No acute distress - HEENT HEENT: Atraumatic - Neck Neck: Supple, no meningeal sign - Cardiac Cardiac: RRR - Respiratory Respiratory: No respiratory distress, Clear bilaterally - Abdomen Abdomen: Soft, Non distended - Derm Derm: Normal color, Warm and dry, No rash - Extremities Extremities: No deformity - Neuro Neuro: Alert and oriented X 3 Eye Opening: Spontaneous Motor: Obeys Commands Verbal: Oriented GCS Score: 15 PD ED PE EXPANDED - Back Back: Soft tissue tenderness (tenderness and hypertonicity of left paraspinal muscles) Results - Vitals Vitals: Vital Signs - 24 hr 10/27/17 10/27/17 10/28/17 21:27 23:32 00:20 Temperature 36.3 C L Heart Rate 102 H 98 76 Respiratory 18 18 16 Rate Blood Pressure 126/86 H 134/98 H 120/68 O2 Saturation 100 100 100 Oxygen O2 Source Room air PD MEDICAL DECISION MAKING - ED course Complexity details: reviewed old records, re-evaluated patient, considered differential, d/w patient, d/w family ED course: patient was seen and examined at bedside. Patient's physical exam findings were consistent with muscle spasm. patient had already taken ibuprofen at home and patient reports an allergy to flexeril. Patient was treated with tylenol and valium. Patient had moderate relief but no imaging or additional medication was indicated at this time. Patient required no further work up and was stable for discharge with outpatient follow up. Departure - Departure Disposition: 01 Home, Self Care Clinical Impression: Back pain Condition: Good Instructions: ED Spasm Back No Trauma Follow-Up: DEMARCO YEPEZ [Primary Care Provider] - Within 3 Days Prescriptions: diazePAM [Valium] 5 - 10 mg PO TID PRN #10 tablet PRN Reason: Spasms Comments: Your symptoms today are likely being caused by a muscle spasm. You should alternate between ice and heat to the area. You can take ibuprofen or tylenol as needed for pain as well as the lidoderm patch. You can try the valium as needed for spasm as well. If your symptoms persist you you should follow up with your doctor for further care. You may return to the emergency department for new, worsening or uncontrollable symptoms. Discharge Date/Time: 10/28/17 00:20
[2017-10-28 00:21] VITALS: BP 120/68
== END 2017-10-28 00:20 | disposition home or self-care (01) ==
LOC: ED 21:05
DX: M54.6 Pain in thoracic spine (principal)
CPT/HCPCS: 99283; A9270

== ENCOUNTER 2017-12-15 19:57 | Emergency (ER) | payer OTHER ==
[2017-12-15 20:11] VITALS: BP 130/87
[2017-12-15] MEDS ORDERED: oxyCODONE/ACET 5/325 Prepack 4 PO STA (20:34)
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
== END 2017-12-15 20:44 | disposition home or self-care (01) ==
LOC: ED 19:57
DX: S09.90XA Unspecified injury of head, initial encounter (principal); S19.9XXA Unspecified injury of neck, initial encounter; V48.5XXA Car driver injured in noncollision transport accident in traffic accident, initial encounter; R03.0 Elevated blood-pressure reading, without diagnosis of hypertension
CPT/HCPCS: 99284

== ENCOUNTER 2018-02-22 18:29 | Emergency (ER) | payer OTHER ==
[2018-02-22 18:56] LABS: BASOPHILS # (AUTO) 0.1 10^3/uL (0.0-0.1); BASOPHILS % (AUTO) 0.7 %; EOSINOPHILS # (AUTO) 0.1 10^3/uL (0.0-0.7); EOSINOPHILS % (AUTO) 1.1 %; LYMPHOCYTES # (AUTO) 3.2 10^3/uL (1.5-3.5); LYMPHOCYTES % (AUTO) 31.6 %; MEAN CORPUSCULAR HEMOGLOBIN 30.3 pg (27.0-31.0); MEAN CORPUSCULAR HGB CONC 33.6 g/dL (32.0-36.0); MEAN PLATELET VOLUME 7.1 fL (7.9-10.8); MONOCYTES # (AUTO) 0.4 10^3/uL (0.0-1.0); MONOCYTES % (AUTO) 4.3 %; NEUTROPHILS # (AUTO) 6.4 10^3/uL (1.5-6.6); NEUTROPHILS % (AUTO) 62.3 %; PLT - PLATELET COUNT 418 10^3/uL (130-450); RED BLOOD COUNT 4.28 10^6/uL (4.20-5.40); RED CELL DISTRIBUTION WIDTH 13.8 % (12.0-15.0); WHITE BLOOD COUNT 10.2 x10^3/uL (4.8-10.8)
[2018-02-22] MEDS ORDERED: oxyCODONE 5 MG TABLET PO STA (18:57)
--- NOTE | 2018-02-22 18:59 | ED Physician Documentation ---
PD HPI ABD PAIN - Stated complaint Stated Complaint: ABD PX - Chief complaint Chief Complaint: Abd Pain - History obtained from History obtained from: Patient, Family - History of Present Illness Timing - onset: Yesterday (37-year-old woman with regular menses on control developed lower left abdominal pain yesterday and was unable to sleep comfortably. She tried to have a bowel movement which worked and it was normal but it did not change the pain. She has been nauseous without vomiting. She has no appetite and she has had chills and sweats without measured fevers. Today she also has a stabbing right lower quadrant pain. There is no associated discharge or bleeding. Her bowel movements again have been normal today and she has been nauseous without vomiting. She been taking Aleve without any relief. She has no history of abdominal surgeries.) Review of Systems Ten Systems: 10 systems reviewed and negative Constitutional: reports: Chills, Sweats. 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 : None HEENT: None Psych: None Musculoskeletal: None Derm: None - Past Surgical History Past Surgical History: Yes Ortho: Other - Present Medications Home Medications: Ambulatory Orders Medication Instructions Recorded Confirmed Propranolol [Inderal] 10 mg PO HS 06/26/13 07/07/17 Ethynodiol D-Ethinyl Estradiol 1 tab PO DAILY 04/24/16 07/07/17 [Zovia 1-35E Tablet] Ondansetron HCl [Zofran] 4 mg PO Q6HR PRN #14 tablet 04/30/17 07/07/17 Sumatriptan Succinate [Imitrex] 50 mg PO ONCE PRN #14 tablet 04/30/17 07/07/17 - Allergies Allergies/Adverse Reactions: Allergies Allergy/AdvReac Type Severity Reaction Status Date / Time Penicillins Allergy Severe Rash Verified 10/27/17 21:29 amoxicillin [Amoxicillin] Allergy Mild Rash Verified 10/27/17 21:29 latex Allergy Hives Verified 10/27/17 21:29 cyclobenzaprine HCl * AdvReac Unknown Verified 02/22/18 18:34 [From Flexeril] - Social History Does the pt smoke?: No Smoking Status: Never smoker Does the pt drink ETOH?: No Does the pt have substance abuse?: No - Family History Family history: reports: Non contributory - Immunizations Immunizations are current?: Yes - POLST Patient has POLST: No PD ED PE NORMAL - Vitals Vital signs reviewed: Yes - General General: Alert and oriented X 3, No acute distress - HEENT HEENT: PERRL, EOMI - Cardiac Cardiac: RRR, No murmur - Respiratory Respiratory: No respiratory distress, Clear bilaterally - Abdomen Abdomen: Normal bowel sounds, Soft, Other (Mild tenderness to both lower quadrants without surgical signs) - Back Back: No CVA TTP, No spinal TTP - Derm Derm: Normal color, Warm and dry - Extremities Extremities: No edema, No calf tenderness / cord - Neuro Neuro: Alert and oriented X 3, Normal speech Results - Vitals Vitals: Vital Signs - 24 hr 02/22/18 02/22/18 02/22/18 18:31 19:45 20:25 Temperature 36.8 C Heart Rate 92 84 Respiratory 20 7 L 16 Rate Blood Pressure 130/84 H 141/90 H O2 Saturation 100 100 02/22/18 02/22/18 21:21 22:16 Temperature Heart Rate 89 Respiratory 17 17 Rate Blood Pressure 117/86 H O2 Saturation 97 Oxygen O2 Source Room air - Labs Labs: Laboratory Tests 02/22/18 02/22/18 02/22/18 18:49 18:49 18:53 WBC 10.2 RBC 4.28 Hgb 13.0 Hct 38.5 MCV 90.0 MCH 30.3 MCHC 33.6 RDW 13.8 Plt Count 418 MPV 7.1 L Neut # (Auto) 6.4 Lymph # (Auto) 3.2 [place] # (Auto) 0.4 Eos # (Auto) 0.1 Baso # (Auto) 0.1 Absolute Nucleated RBC 0.01 Nucleated RBC % 0.1 Sodium 134 L Potassium 3.8 Chloride 103 Carbon Dioxide 24 Anion Gap 7.0 BUN 11 Creatinine 0.8 Estimated GFR (MDRD) 81 L Glucose 91 Calcium 9.1 Total Bilirubin 0.8 AST 20 ALT 18 Alkaline Phosphatase 61 Total Protein 7.8 Albumin 4.1 Globulin 3.7 Albumin/Globulin Ratio 1.1 Lipase 30 Urine Color YELLOW Urine Clarity CLEAR Urine pH 6.0 Ur Specific Gans 1.025 Urine Protein NEGATIVE Urine Glucose (UA) NEGATIVE Urine Ketones NEGATIVE Urine Occult Blood TRACE-INTA Urine Nitrite NEGATIVE Urine Bilirubin NEGATIVE Urine Urobilinogen 0.2 (NORMAL) Ur Leukocyte Esterase NEGATIVE Ur Microscopic Review NOT INDICATED Urine Culture Comments NOT INDICATED Urine HCG, Qual NEGATIVE - Rads (name of study) Pelvic sono Radiology: EMP read contemporaneously (Small subserosal fibroid without other acute abnormality) Ct A/P Radiology: EMP read contemporaneously (No abnormality other than the subserosal fibroid, specifically the appendix is seen and normal.) PD MEDICAL DECISION MAKING - ED course ED course: Pelvic pain first left then right, might be from fibroid but CT also done with high/normal WBC and appy ruled out. - Sepsis Event Vital Signs: Vital Signs - 24 hr 02/22/18 02/22/18 02/22/18 18:31 19:45 20:25 Temperature 36.8 C Heart Rate 92 84 Respiratory 20 7 L 16 Rate Blood Pressure 130/84 H 141/90 H O2 Saturation 100 100 02/22/18 02/22/18 21:21 22:16 Temperature Heart Rate 89 Respiratory 17 17 Rate Blood Pressure 117/86 H O2 Saturation 97 Oxygen O2 Source Room air Departure - Departure Disposition: 01 Home, Self Care Clinical Impression: Abdominal pain Qualifiers: Abdominal location: right lower quadrant Qualified Code(s): R10.31 - Right lower quadrant pain Condition: Good Record reviewed to determine appropriate education?: Yes Instructions: ED Pelvic Pain [facility] Comments: Return in 12-24 hours if not better, anytime if worse or if new symptoms develop. Discharge Date/Time: 02/22/18 22:45
[2018-02-22 19:10] LABS: BILIRUBIN,URINE NEGATIVE (NEGATIVE); GLUCOSE, URINE (UA) NEGATIVE (NEGATIVE); KETONES,URINE (UA) NEGATIVE (NEGATIVE); LEUKOCYTE ESTERASE, URINE NEGATIVE (NEGATIVE); NITRITE,URINE NEGATIVE (NEGATIVE); OCCULT BLOOD,URINE TRACE-INTA (NEGATIVE); PROTEIN,URINE NEGATIVE (NEGATIVE); UROBILINOGEN,URINE 0.2 (NORMAL) E.U./dL (NORMAL)
[2018-02-22 19:10] LABS: ALBUMIN 4.1 g/dL (3.2-5.5); ALBUMIN/GLOBULIN RATIO 1.1 (1.0-2.2); BILIRUBIN,TOTAL 0.8 mg/dL (0.2-1.0); CALCIUM 9.1 mg/dL (8.5-10.3); CREATININE 0.8 mg/dL (0.4-1.0); TOTAL PROTEIN 7.8 g/dL (6.7-8.2)
[2018-02-22 19:13] LABS: CLARITY,URINE CLEAR (CLEAR); HCG UR QUAL NEGATIVE
--- NOTE | 2018-02-22 20:52 | Ultrasound Report ---
Procedure Date: 02/22/2018 Accession Number: [id number] / [id number] Procedure: US - Pelvic w/Transvag+Doppler Ltd CPT Code: FULL RESULT: EXAM: PELVIC ULTRASOUND EXAM DATE: 02/22/2018 08:11 PM. CLINICAL HISTORY: Pelvic pain. COMPARISON: None. TECHNIQUE: Realtime transabdominal pelvic scan performed to identify the uterus and adnexa and as an overview of other pelvic structures, followed by transvaginal scan to provide greater detail of the uterus and adnexa, with static image documentation. FINDINGS: Uterus: 7.4 x 3.7 x 4.4 cm, volume 63 cc. Anteverted position. Normal overall size and echotexture. Masses: Small 1.8 cm subserosal fibroid is seen in the right fundus. Endometrium: 4 mm. Normal. Cervix: Unremarkable. Right Ovary: 2.2 x 1.2 x 1.1 cm, volume 1.4 cc. Normal echotexture and blood flow. Left Ovary: 2.2 x 1.8 x 1.5 cm, volume 3 cc. Normal echotexture and blood flow. Free Fluid: None. Other: None. IMPRESSION: Small 1.8 cm subserosal fibroid in the uterine fundus, otherwise, normal exam. No acute pelvic pathology demonstrated. RADIA
[2018-02-22] MEDS ORDERED: MORPHINE 10 MG/ML VIAL IVP STA (21:07)
[2018-02-22] MEDS ORDERED: IOPAMIDOL-300 100 ML VIAL ONE (21:14)
[2018-02-22] MEDS ORDERED: SODIUM CHLORIDE FLUSH 0.9% 10 ML SYRINGE ONE (21:15)
[2018-02-22] MEDS ORDERED: IOPAMIDOL-300 100 ML VIAL IVP ONE (21:31)
--- NOTE | 2018-02-22 22:13 | CT Report ---
Procedure Date: 02/22/2018 Accession Number: [id number] / [id number] Procedure: CT - Abdomen/Pelvis W/ CPT Code: FULL RESULT: EXAM: CT ABDOMEN AND PELVIS. EXAM DATE: 02/22/2018 09:32 PM. CLINICAL HISTORY: IV only, lower abdominal pain. COMPARISONS: Right upper quadrant ultrasound 01/12/2016. Pelvic ultrasound 02/22/2018. CT of the abdomen and pelvis with contrast 01/12/2016. TECHNIQUE: Routine helical CT imaging was performed through the abdomen and pelvis. IV contrast: ISOVUE 300 100 mL. Enteric contrast: No. Reconstructions: Coronal and sagittal. In accordance with CT protocol optimization, one or more of the following dose reduction techniques were utilized for this exam: automated exposure control, adjustment of mA and/or KV based on patient size, or use of iterative reconstructive technique. FINDINGS: Lung Bases: Unremarkable. Liver: Normal. No masses. Gallbladder/Bile Ducts: Unremarkable. Spleen: Normal. Pancreas: Normal. Adrenal Glands: Normal. Kidneys: Normal. No masses or hydronephrosis. Peritoneal Cavity/Bowel: Normal. No free fluid, free air or adenopathy. No masses or acute inflammatory process. The appendix is well visualized and normal. Pelvic Organs: Urinary bladder is unremarkable. Uterus is anteflexed with small subserosal fibroid at the fundus as on same day ultrasound. No adnexal mass. Vasculature: No aneurysms or other significant abnormality. Bones: No significant abnormality. Other: None. IMPRESSION: 1. No acute intra-abdominal or pelvic abnormality. Specifically the appendix is well-visualized and normal. 2. Small subserosal fundal fibroid, better appreciated on same day ultrasound. RADIA
[2018-02-22 22:17] VITALS: BP 117/86
[2018-02-22] MEDS ORDERED: oxyCODONE/ACET 5/325 Prepack 4 PO STA (22:26)
== END 2018-02-22 22:45 | disposition home or self-care (01) ==
LOC: ED 18:29
DX: R10.31 Right lower quadrant pain (principal); R10.32 Left lower quadrant pain; R11.0 Nausea; D25.2 Subserosal leiomyoma of uterus
CPT/HCPCS: 36415; 74177; 76830; 76856; 80053; 81003; 81025; 83690; 85025; 93976; 96374; 99283; A9270; Q9967; 81001; 87086

== ENCOUNTER 2018-05-12 11:53 | Outpatient (CLI) | payer OTHER ==
--- NOTE | 2018-05-12 12:38 | CT Report ---
Reason: SINUSITIS, CHRONIC Procedure Date: 05/12/2018 Accession Number: [id number] / [id number] Procedure: CT - Sinuses CPT Code: FULL RESULT: EXAM: CT SINUS EXAM DATE: 05/12/2018 12:12 PM. HISTORY: COMPARISONS: None. TECHNIQUE: Routine multi-axial CT imaging performed through the sinuses. Iodinated IV contrast: None. Reconstructions: Multiplanar reformats. In accordance with CT protocol optimization, one or more of the following dose reduction techniques were utilized for this exam: automated exposure control, adjustment of mA and/or KV based on patient size, or use of iterative reconstructive technique. FINDINGS: RIGHT Frontal: Normal. Ethmoid: Normal. Maxillary: Small air-fluid level. Sphenoid: Normal. Drainage Pathways: The frontal recess, ostiomeatal complex and sphenoethmoidal recess are patent and normal. LEFT Frontal: Normal. Ethmoid: Normal. Maxillary: Normal. Sphenoid: Normal. Drainage Pathways: The frontal recess, ostiomeatal complex and sphenoethmoidal recess are patent and normal. Nasal Cavity: Normal. No mass or significant anatomic abnormality evident. Osseous Structures: Unremarkable. Orbits: Unremarkable. Other: None. IMPRESSION: 1. Small air-fluid level in the right maxillary sinus which can be seen in the setting of acute sinusitis. 2. The remainder of the examination is unremarkable. RADIA
== END 2018-05-12 11:54 | disposition home or self-care (01) ==
LOC: DI 11:53
PROVIDERS: ATTEND Specialist
DX: J32.9 Chronic sinusitis, unspecified (principal)
CPT/HCPCS: 70486

== ENCOUNTER 2018-10-14 17:56 | Emergency (ER) | payer OTHER ==
[2018-10-14] MEDS ORDERED: DEXAMETHASONE 10 MG/ML VIAL PO STA (19:31)
[2018-10-14] MEDS ORDERED: HYDROcod/ACETAM 5/325 MG TABLET PO STA (19:31)
--- NOTE | 2018-10-14 19:34 | ED Physician Documentation ---
PD HPI LOWER EXT INJURY - Stated complaint Stated Complaint: BILAT FOOT PX - Chief complaint Chief Complaint: Ext Problem - History obtained from History obtained from: Patient - History of Present Illness PD HPI LOW EXT INJURY LOCATION: Other (She has had a lot of increased activity over the last week and complains of pain along the plantar fascia of both feet into the Achilles tendons. It is bilateral and symmetric. 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 HEENT: None Psych: None Musculoskeletal: None Derm: None - Past Surgical History Past Surgical History: Yes Ortho: Other - Present Medications Home Medications: Ambulatory Orders Medication Instructions Recorded Confirmed Propranolol [Inderal] 10 mg PO HS 06/26/13 07/07/17 Ethynodiol D-Ethinyl Estradiol 1 tab PO DAILY 04/24/16 07/07/17 [Zovia 1-35E Tablet] Ondansetron HCl [Zofran] 4 mg PO Q6HR PRN #14 tablet 04/30/17 07/07/17 Sumatriptan Succinate [Imitrex] 50 mg PO ONCE PRN #14 tablet 04/30/17 07/07/17 Meloxicam [Mobic] 7.5 mg PO BID PRN #20 tablet 10/14/18 - Allergies Allergies/Adverse Reactions: Allergies Allergy/AdvReac Type Severity Reaction Status Date / Time Penicillins Allergy Severe Rash Verified 10/14/18 18:05 amoxicillin [Amoxicillin] Allergy Mild Rash Verified 10/14/18 18:05 latex Allergy Hives Verified 10/14/18 18:05 cyclobenzaprine HCl * AdvReac Unknown Verified 10/14/18 18:05 [From Flexeril] - Social History Does the pt smoke?: No Smoking Status: Never smoker Does the pt drink ETOH?: No Does the pt have substance abuse?: No - Immunizations Immunizations are current?: Yes - POLST Patient has POLST: No PD ED PE NORMAL - Vitals Vital signs reviewed: Yes - General General: Alert and oriented X 3, No acute distress - Extremities Extremities: Other (Tender along both plantar fascia and at the insertion of the anterior calcaneus, not the Achilles tendons per se. No warmth or redness.) - Neuro Neuro: Alert and oriented X 3, Normal speech Results - Vitals Vitals: Vital Signs - 24 hr 10/14/18 18:01 Temperature 36.7 C Heart Rate 97 Respiratory 18 Rate Blood Pressure 141/101 H O2 Saturation 100 Oxygen O2 Source Room air PD MEDICAL DECISION MAKING - ED course ED course: This is a 38-year-old woman with plantar fasciitis bilaterally. She is given stretches and conservative care to do. Also recommended to follow-up with iron melter for consideration for orthotics Departure - Departure Disposition: Home, Self Care Clinical Impression: Plantar fasciitis, bilateral Condition: Good Record reviewed to determine appropriate education?: Yes Instructions: ED Plantar Fasciitis Follow-Up: Chrissie Sanchez DPM [Provider Admit Priv/Credential] - Prescriptions: Meloxicam [Mobic] 7.5 mg PO BID PRN #20 tablet PRN Reason: Pain Comments: Do the stretches and tennis ball rolls as discussed. Follow-up with a iron melter for further evaluation and treatment, potential orthotics. Your blood pressure was elevated today on check into the emergency department. This does not mean that you have hypertension, it is a common phenomenon to come to the emergency department and have elevated blood pressure. I recommend that you see your primary care physician within the week to have it rechecked when you are feeling better.
[2018-10-14 19:46] VITALS: BP 138/88
== END 2018-10-14 19:44 | disposition home or self-care (01) ==
LOC: ED 17:56
DX: M72.2 Plantar fascial fibromatosis (principal)
CPT/HCPCS: 99283; A9270

== ENCOUNTER 2018-11-11 17:06 | Emergency (ER) | payer OTHER ==
[2018-11-11 17:13] VITALS: BP 134/102
--- NOTE | 2018-11-11 18:20 | XRAY Report ---
Reason: R hand vs dog leash Procedure Date: 11/11/2018 Accession Number: [id number] / [id number] Procedure: XR - Hand 3 View RT CPT Code: FULL RESULT: EXAM: RIGHT HAND RADIOGRAPHY EXAM DATE: 11/11/2018 05:44 PM. CLINICAL HISTORY: Right thumb pain right hand pain after dog leash pulled on hand/wrist. COMPARISON: None. TECHNIQUE: 3 views. FINDINGS: Bones: Normal. No fractures or bone lesions. Joints: Normal. No subluxations. Soft Tissues: No radiopaque foreign bodies. IMPRESSION: 1. No acute osseous abnormalities. RADIA
--- NOTE | 2018-11-11 18:22 | XRAY Report ---
Reason: R wrist vs dog leash Procedure Date: 11/11/2018 Accession Number: [id number] / [id number] Procedure: XR - Wrist 4 View RT CPT Code: FULL RESULT: EXAM: RIGHT WRIST RADIOGRAPHY EXAM DATE: 11/11/2018 05:44 PM. CLINICAL HISTORY: Right medial wrist pain after dog leash pulled on hand/wrist. COMPARISON: HAND 3 VIEW RT 11/11/2018 5:28 PM. TECHNIQUE: 4 views. FINDINGS: Bones: Normal. No fractures or bone lesions. Joints: Normal. No subluxations. Soft Tissues: No radiopaque foreign bodies. IMPRESSION: 1. No acute osseous abnormalities. RADIA
--- NOTE | 2018-11-11 18:40 | ED Physician Documentation ---
PD HPI UPPER EXT INJURY - Stated complaint Stated Complaint: RT WRIST PAIN - Chief complaint Chief Complaint: Trauma Ext - History obtained from History obtained from: Patient - History of Present Illness Location: Right, Wrist, Hand Type of injury: Twist, Crush Where injury occurred: Home Timing - onset: How many hours ago (2) Timing - duration: Hours (2) Timing - details: Abrupt onset Pain level max: 7 Pain level now: 6 Improved by: Rest, Ice, Immobilization Worsened by: Moving, Palpating Associated symptoms: Swelling. 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 : None HEENT: None Psych: None Musculoskeletal: None Derm: None - Past Surgical History Past Surgical History: Yes Ortho: Other - Present Medications Home Medications: Ambulatory Orders Medication Instructions Recorded Confirmed Propranolol [Inderal] 10 mg PO HS 06/26/13 07/07/17 Ethynodiol D-Ethinyl Estradiol 1 tab PO DAILY 04/24/16 07/07/17 [Zovia 1-35E Tablet] Sumatriptan Succinate [Imitrex] 50 mg PO ONCE PRN #14 tablet 04/30/17 07/07/17 Ibuprofen [Motrin] 800 mg PO Q8H PRN #30 tablet 11/11/18 - Allergies Allergies/Adverse Reactions: Allergies Allergy/AdvReac Type Severity Reaction Status Date / Time Penicillins Allergy Severe Rash Verified 11/11/18 17:13 amoxicillin [Amoxicillin] Allergy Mild Rash Verified 11/11/18 17:13 latex Allergy Hives Verified 11/11/18 17:13 cyclobenzaprine HCl * AdvReac Unknown Verified 11/11/18 17:13 [From Flexeril] - Social History Does the pt smoke?: No Smoking Status: Never smoker Does the pt drink ETOH?: No Does the pt have substance abuse?: No - Immunizations Immunizations are current?: Yes - POLST Patient has POLST: No PD ED PE NORMAL - Vitals Vital signs reviewed: Yes - General General: Alert and oriented X 3, No acute distress - Derm Derm: Warm and dry - Extremities Extremities: Other (Right hand and wrist - Mild diffuse swelling. Generalized tenderness over the hand and wrist. No snuffbox tenderness. No deformity. Neurovascularly intact) - Neuro Neuro: Alert and oriented X 3 Results - Vitals Vitals: Vital Signs - 24 hr 11/11/18 17:09 Temperature 35.7 C L Heart Rate 81 Respiratory 20 Rate Blood Pressure 134/102 H O2 Saturation 100 Oxygen O2 Source Room air - Rads (name of study) Right hand x-ray Radiology: Prelim report reviewed, EMP read contemporaneously, See rad report (No acute bony abnormality) Right wrist x-ray Radiology: Prelim report reviewed, EMP read contemporaneously, See rad report (No acute abnormality) PD MEDICAL DECISION MAKING - ED course Complexity details: reviewed results, re-evaluated patient, considered differential, d/w patient, d/w family ED course: No acute findings on x-ray. Placed in a Velcro thumb spica for comfort. Will have her follow-up with her doctor for further care. Patient counseled regarding signs and symptoms for which I believe and urgent re-evaluation would be necessary. Patient with good understanding of and agreement to plan and is comfortable going home at this time This document was made in part using voice recognition software. While efforts are made to proofread this document, sound alike and grammatical errors may occur. Departure - Departure Disposition: 01 Home, Self Care Clinical Impression: Sprain of right hand Qualifiers: Encounter type: initial encounter Qualified Code(s): S63.91XA - Sprain of unspecified part of right wrist and hand, initial encounter Sprain of right wrist Qualifiers: Encounter type: initial encounter Qualified Code(s): S63.501A - Unspecified sprain of right wrist, initial encounter Condition: Good Instructions: ED Sprain Hand, ED Sprain Wrist Follow-Up: DEMARCO YEPEZ [Primary Care Provider] - Within 1 week Prescriptions: Ibuprofen [Motrin] 800 mg PO Q8H PRN #30 tablet PRN Reason: PAIN &/OR FEVER Comments: You can use Motrin or Tylenol as needed for pain. Return if you worsen. Follow-up with your doctor for further evaluation and care. Your x-rays are normal today. Wear the splint for the next several days to help with the discomfort. Discharge Date/Time: 11/11/18 18:54
== END 2018-11-11 18:54 | disposition home or self-care (01) ==
LOC: ED 17:06
DX: S63.91XA Sprain of unspecified part of right wrist and hand, initial encounter (principal); S63.501A Unspecified sprain of right wrist, initial encounter; X50.1XXA Overexertion from prolonged static or awkward postures, initial encounter; W23.0XXA Caught, crushed, jammed, or pinched between moving objects, initial encounter; Y92.009 Unspecified place in unspecified non-institutional (private) residence as the place of occurrence of the external cause
CPT/HCPCS: 99283

== ENCOUNTER 2019-01-18 19:17 | Emergency (ER) | payer OTHER ==
--- NOTE | 2019-01-18 21:08 | XRAY Report ---
Reason: fall, shoulder pain Procedure Date: 01/18/2019 Accession Number: [id number] / [id number] Procedure: XR - Wrist 4 View LT CPT Code: FULL RESULT: EXAM: LEFT WRIST RADIOGRAPHY EXAM DATE: 01/18/2019 08:38 PM. CLINICAL HISTORY: Fall, shoulder pain. Left wrist pain. Bruising of the dorsal first CMC joint. COMPARISON: WRIST 4 VIEW RT 11/11/2018 5:30 PM. TECHNIQUE: 4 views. FINDINGS: Bones: Normal. No fractures or bone lesions. Joints: Normal. No subluxations. Soft Tissues: Normal. No soft tissue swelling. IMPRESSION: Normal wrist radiography. RADIA
--- NOTE | 2019-01-18 21:09 | XRAY Report ---
Reason: fall, shoulder pain Procedure Date: 01/18/2019 Accession Number: [id number] / [id number] Procedure: XR - Shoulder 3 View LT CPT Code: FULL RESULT: EXAM: LEFT SHOULDER RADIOGRAPHY EXAM DATE: 01/18/2019 08:38 PM. CLINICAL HISTORY: Fall, shoulder pain. COMPARISON: SHOULDER 3 VIEW LT 02/19/2017 8:46 PM. TECHNIQUE: 3 views. FINDINGS: Old healed clavicle deformity again noted. No significant degenerative joint disease. No evidence for acute fracture or dislocation. IMPRESSION: No acute findings. RADIA
[2019-01-18] MEDS ORDERED: HYDROcod/ACETAM 5/325 MG TABLET PO STA (21:38)
--- NOTE | 2019-01-18 21:45 | ED Physician Documentation ---
History of Present Illness - Stated complaint Stated Complaint: L SHLDR INJ - Chief complaint Chief Complaint: Ext Problem - History obtained from History obtained from: Patient - History of Present Illness Timing: How many days ago (3) Pain level max: 7 Pain level now: 5 - Additonal information Additional information: Patient states that 3 days ago she was walking up the steps, tripped fell landed on the left wrist and left shoulder. Having increased pain. No head injury. No loss of consciousness. Did have some neck pain initially but this is resolved. No numbness or tingling. Worse with movement and better with rest. she is right-handed. 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 : None HEENT: None Psych: None Musculoskeletal: None Derm: None - Past Surgical History Past Surgical History: Yes Ortho: Other - Present Medications Home Medications: Ambulatory Orders Medication Instructions Recorded Confirmed Propranolol [Inderal] 10 mg PO HS 06/26/13 07/07/17 Ethynodiol D-Ethinyl Estradiol 1 tab PO DAILY 04/24/16 07/07/17 [Zovia 1-35E Tablet] Sumatriptan Succinate [Imitrex] 50 mg PO ONCE PRN #14 tablet 04/30/17 07/07/17 Ibuprofen [Motrin] 800 mg PO Q8H PRN #30 tablet 11/11/18 Hydrocodone/Acetaminophen 1 - 2 each PO Q6H PRN #10 tablet 01/18/19 [Hydrocodon-Acetaminophen 5-325] - Allergies Allergies/Adverse Reactions: Allergies Allergy/AdvReac Type Severity Reaction Status Date / Time Penicillins Allergy Severe Rash Verified 11/11/18 17:13 amoxicillin [Amoxicillin] Allergy Mild Rash Verified 11/11/18 17:13 latex Allergy Hives Verified 11/11/18 17:13 cyclobenzaprine HCl * AdvReac Unknown Verified 11/11/18 17:13 [From Flexeril] - Social History Does the pt smoke?: No Smoking Status: Never smoker Does the pt drink ETOH?: No Does the pt have substance abuse?: Yes Substance Use and Type: Marijuana - Immunizations Immunizations are current?: Yes - POLST Patient has POLST: No PD ED PE NORMAL - Vitals Vital signs reviewed: Yes - General General: Alert and oriented X 3, No acute distress, Well developed/nourished - HEENT HEENT: Atraumatic, PERRL, Moist mucous membranes - Neck Neck: Supple, no meningeal sign, No bony TTP, Other (Full range of motion without pain) - Cardiac Cardiac: RRR - Respiratory Respiratory: No respiratory distress, Clear bilaterally - Back Back: No spinal TTP - Derm Derm: Warm and dry - Extremities Extremities: Other (Tender palpation over the left wrist diffusely. No scaphoid tenderness. Also tender to palpation along the glenohumeral joints, left shoulder. No deformity. Neurovascular intact including the axillary nerve.) - Neuro Neuro: Alert and oriented X 3, No motor deficit, No sensory deficit - Psych Psych: Normal mood, Normal affect Results - Vitals Vitals: Vital Signs - 24 hr 01/18/19 01/18/19 19:20 21:53 Temperature 36.3 C L 36.6 C Heart Rate 92 90 Respiratory 18 18 Rate Blood Pressure 120/79 121/79 O2 Saturation 99 100 Oxygen O2 Source Room air - Rads (name of study) Left shoulder x-ray Radiology: Prelim report reviewed, EMP read contemporaneously, See rad report (Normal wrist radiography. ) Left knee x-ray Radiology: Prelim report reviewed, EMP read contemporaneously, See rad report (No acute findings) PD MEDICAL DECISION MAKING - ED course Complexity details: reviewed results, re-evaluated patient, considered differential, d/w patient, d/w family ED course: No acute findings on x-ray. She has a sling at home that she can use for comfort if need be. Counseled not to stay in this longer than 2 to [address] in a Velcro wrist splint for comfort. Will prescribe a small amount of pain medication for home. We will follow-up with her doctor for further care. She is neurovascularly intact. Patient counseled regarding signs and symptoms for which I believe and urgent re-evaluation would be necessary. Patient with good understanding of and agreement to plan and is comfortable going home at this time This document was made in part using voice recognition software. While efforts are made to proofread this document, sound alike and grammatical errors may occur. Departure - Departure Disposition: 01 Home, Self Care Clinical Impression: Sprain of left wrist Qualifiers: Encounter type: initial encounter Qualified Code(s): S63.502A - Unspecified sprain of left wrist, initial encounter Left shoulder strain Qualifiers: Encounter type: initial encounter Qualified Code(s): S46.912A - Strain of unspecified muscle, fascia and tendon at shoulder and upper arm level, left arm, initial encounter Condition: Good Instructions: ED Sprain Shoulder, ED Sprain Wrist Follow-Up: DEMARCO YEPEZ [Primary Care Provider] - Within 1 week Prescriptions: Hydrocodone/Acetaminophen [Hydrocodon-Acetaminophen 5-325] 1 - 2 each PO Q6H PRN #10 tablet PRN Reason: pain Comments: Follow-up with your doctor for further care. Your x-rays are normal today. You can use a shoulder sling for 2 to 3 days if you like to help with the discomfort. You should also wear the wrist splint as needed. You should be removing this daily to move the wrist gently. You should not need this more than a week or so. Do not drink alcohol or drive while on narcotic pain medicine. Note that many narcotic pain relievers also contain tylenol/acetaminophen. Please ensure that your total dose of acetaminophen from all sources does not exceed 3 grams (3000mg) per day. You may constipated on this medication, take a stool softener such as "Colace" twice a day while you are on it. Also recommend a [id number]-[id number] laxative such as senna or MiraLAX any day that you do not have a bowel movement. If you received narcotic pain medication in the emergency department, do not drive or operate machinery for the next 24 hours. Discharge Date/Time: 01/18/19 22:02
[2019-01-18 21:54] VITALS: BP 121/79
== END 2019-01-18 22:02 | disposition home or self-care (01) ==
LOC: ED 19:17
DX: S63.502A Unspecified sprain of left wrist, initial encounter (principal); S46.912A Strain of unspecified muscle, fascia and tendon at shoulder and upper arm level, left arm, initial encounter; M54.2 Cervicalgia; W10.9XXA Fall (on) (from) unspecified stairs and steps, initial encounter; Y93.01 Activity, walking, marching and hiking
CPT/HCPCS: 73030; 73110; 99283; A9270

== ENCOUNTER 2019-03-17 19:03 | Emergency (ER) | payer OTHER ==
[2019-03-17] MEDS ORDERED: oxyCODONE 5 MG TABLET PO STA (20:25)
--- NOTE | 2019-03-17 20:26 | ED Physician Documentation ---
PD HPI UPPER EXT INJURY - Stated complaint Stated Complaint: BACK/RIB PX - Chief complaint Chief Complaint: Ext Problem - History obtained from History obtained from: Patient - History of Present Illness Location: Left (She lifted a heavy dog this morning and felt a pop in the left mid ribs towards the black. With persistent pain since despite trying ibuprofen. 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 : None HEENT: None Psych: None Musculoskeletal: None Derm: None - Past Surgical History Past Surgical History: Yes Ortho: Other - Present Medications Home Medications: Ambulatory Orders Medication Instructions Recorded Confirmed Propranolol [Inderal] 10 mg PO HS 06/26/13 03/17/19 Ethynodiol D-Ethinyl Estradiol 1 tab PO DAILY 04/24/16 03/17/19 [Zovia 1-35E Tablet] Sumatriptan Succinate [Imitrex] 50 mg PO ONCE PRN #14 tablet 04/30/17 03/17/19 Oxycodone HCl/Acetaminophen 1 - 2 each PO Q6H PRN #10 tablet 03/17/19 [Percocet 5-325 mg Tablet] - Allergies Allergies/Adverse Reactions: Allergies Allergy/AdvReac Type Severity Reaction Status Date / Time Penicillins Allergy Severe Rash Verified 03/17/19 19:27 amoxicillin [Amoxicillin] Allergy Mild Rash Verified 03/17/19 19:27 latex Allergy Hives Verified 03/17/19 19:27 cyclobenzaprine HCl * AdvReac Unknown Verified 03/17/19 19:27 [From Flexeril] - Social History Does the pt smoke?: No Smoking Status: Never smoker Does the pt drink ETOH?: No Does the pt have substance abuse?: Yes - Immunizations Immunizations are current?: Yes - POLST Patient has POLST: No PD ED PE NORMAL - Vitals Vital signs reviewed: Yes - General General: Alert and oriented X 3, No acute distress - Neck Neck: Supple, no meningeal sign, No bony TTP - Cardiac Cardiac: RRR, No murmur - Respiratory Respiratory: No respiratory distress, Clear bilaterally, Other (Tender about rib 6, posterior axillary line on the left without deformity.) - Neuro Neuro: Alert and oriented X 3, Normal speech Results - Vitals Vitals: Vital Signs - 24 hr 03/17/19 19:17 Temperature 36.1 C L Heart Rate 82 Respiratory 16 Rate Blood Pressure 135/80 H O2 Saturation 98 Oxygen O2 Source Room air - Rads (name of study) L ribs and chest Radiology: EMP read contemporaneously (NAD) Departure - Departure Disposition: Home, Self Care Clinical Impression: Chest wall muscle strain Qualifiers: Encounter type: initial encounter Qualified Code(s): S29.011A - Strain of muscle and tendon of front wall of thorax, initial encounter Condition: Good Record reviewed to determine appropriate education?: Yes Instructions: ED Strain Muscle Ext Prescriptions: Oxycodone HCl/Acetaminophen [Percocet 5-325 mg Tablet] 1 - 2 each PO Q6H PRN #10 tablet PRN Reason: pain Comments: Recheck with your doctor in a week if not better, return for new worsening symptoms. He can continue to take Motrin as needed in addition to the prescription pain medication.
--- NOTE | 2019-03-17 21:11 | XRAY Report ---
Reason: rib inj Procedure Date: 03/17/2019 Accession Number: [id number] / [id number] Procedure: XR - Ribs w/PA Chest LT CPT Code: FULL RESULT: EXAM: LEFT RIB RADIOGRAPHY EXAM DATE: 03/17/2019 08:37 PM. CLINICAL HISTORY: Left posterior rib pain after injury today lifting heavy dog. COMPARISON: None. TECHNIQUE: 1 view of the chest and 2 views of the ribs. FINDINGS: Bones: No acute fracture identified. An old healed left midclavicular fracture is noted Lungs: No focal opacities. No pneumothorax. No pleural effusions. Mediastinum: Heart and mediastinal contours are unremarkable. Other: None. IMPRESSION: 1. No rib fracture or pneumothorax evident. 2. Old left midclavicular fracture. RADIA
[2019-03-17] MEDS ORDERED: oxyCODONE/ACET 5/325 Prepack 4 PO STA (21:15)
[2019-03-17 21:18] VITALS: BP 127/81
== END 2019-03-17 21:25 | disposition home or self-care (01) ==
LOC: ED 19:03
DX: S29.011A Strain of muscle and tendon of front wall of thorax, initial encounter (principal); M54.9 Dorsalgia, unspecified; X50.0XXA Overexertion from strenuous movement or load, initial encounter; Y93.89 Activity, other specified
CPT/HCPCS: 71101; 99283; 99284; A9270

== ENCOUNTER 2019-04-07 19:34 | Emergency (ER) | payer OTHER ==
[2019-04-07 19:44] VITALS: BP 158/56
[2019-04-07] MEDS ORDERED: oxyCODONE/ACET 5/325 Prepack 4 PO STA (19:53)
[2019-04-07] MEDS ORDERED: DEXAMETHASONE 10 MG/ML VIAL IM STA (19:53)
[2019-04-07] MEDS ORDERED: HYDROmorphone 1 MG/ML CARPUJECT IM STA (19:53)
--- NOTE | 2019-04-07 19:56 | ED Physician Documentation ---
PD HPI BACK INJURY - Stated complaint Stated Complaint: LWR BACK PAIN - History obtained from History obtained from: Patient - History of Present Illness Location: Lower (38-year-old woman with history of sciatica x1 developed atraumatic left low back pain radiating into the left thigh last night. There is some numbness in the left leg but no associated saddle anesthesia or incontinence. 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 : None HEENT: None Psych: None Musculoskeletal: None Derm: None - Past Surgical History Past Surgical History: Yes Ortho: Other - Present Medications Home Medications: Ambulatory Orders Medication Instructions Recorded Confirmed Propranolol [Inderal] 10 mg PO HS 06/26/13 03/17/19 Ethynodiol D-Ethinyl Estradiol 1 tab PO DAILY 04/24/16 03/17/19 [Zovia 1-35E Tablet] Sumatriptan Succinate [Imitrex] 50 mg PO ONCE PRN #14 tablet 04/30/17 03/17/19 Oxycodone HCl/Acetaminophen 1 - 2 each PO Q6H PRN #10 tablet 03/17/19 [Percocet 5-325 mg Tablet] Oxycodone HCl/Acetaminophen 1 - 2 each PO Q6H PRN #14 tablet 04/07/19 [Percocet 5-325 mg Tablet] predniSONE [Deltasone] 20 mg PO [id number] #21 tab 04/07/19 - Allergies Allergies/Adverse Reactions: Allergies Allergy/AdvReac Type Severity Reaction Status Date / Time Penicillins Allergy Severe Rash Verified 04/07/19 19:44 amoxicillin [Amoxicillin] Allergy Mild Rash Verified 04/07/19 19:44 latex Allergy Hives Verified 04/07/19 19:44 cyclobenzaprine HCl * AdvReac Unknown Verified 04/07/19 19:44 [From Flexeril] - Social History Does the pt smoke?: No Smoking Status: Never smoker Does the pt drink ETOH?: No Does the pt have substance abuse?: Yes - Immunizations Immunizations are current?: Yes - POLST Patient has POLST: No PD ED PE NORMAL - Vitals Vital signs reviewed: Yes - General General: Alert and oriented X 3 (She appears uncomfortable and is laying right lateral decubitus) - Abdomen Abdomen: Soft, Non tender - Back Back: Other (No spinal tenderness, but she is tender in the left sciatic notch. She has equal but diminished L4 and L5 reflexes bilaterally. Diminished sensation in the left L4 distribution.) - Neuro Neuro: Alert and oriented X 3, Normal speech - Psych Psych: Normal mood, Normal affect Results - Vitals Vitals: Vital Signs - 24 hr 04/07/19 19:35 Temperature 36.9 C Heart Rate 110 H Respiratory 18 Rate Blood Pressure 158/56 H O2 Saturation 100 Oxygen O2 Source Room air PD MEDICAL DECISION MAKING - ED course ED course: This patient has seemingly uncomplicated musculoskeletal back pain. The patient has no "red flags." Specifically denies IV drug use, fevers, incontinence, saddle anesthesia. Spinal epidural abscess was considered, given that the patient has no fever, is not diabetic, has no spinal tenderness, does not use IV drugs, and has no bilateral neurologic symptoms, the diagnosis of spinal epidural abscess is considered exceedingly unlikely. Departure - Departure Disposition: Home, Self Care Clinical Impression: Sciatica Condition: Good Record reviewed to determine appropriate education?: Yes Instructions: ED Sciatica Prescriptions: Oxycodone HCl/Acetaminophen [Percocet 5-325 mg Tablet] 1 - 2 each PO Q6H PRN #14 tablet PRN Reason: pain predniSONE [Deltasone] 20 mg PO [id number] #21 tab Comments: Call your doctor to arrange a follow-up appointment, make the next available appointment. In the interim, return anytime if worse or if new symptoms develop. Do not drink or drive while taking narcotic pain medication. Note that many narcotic pain relievers also contain Tylenol/acetaminophen. Please ensure that your total dose of acetaminophen from all sources does not exceed 3 g (3000 mg) per day. You may get constipated while on this medication. Take a stool softener such as Colace twice a day while you are on it. Also add an pyuk-nai-ymgbkcz laxative such as senna or MiraLAX on any day that you do not have a bowel movement. If you received a narcotic pain medication or sedative while in the emergency department, do not drive for the next 24 hours. Your blood pressure was elevated today on check into the emergency department. This does not mean that you have hypertension, it is a common phenomenon to come to the emergency department and have elevated blood pressure. I recommend that you see your primary care physician within the week to have it rechecked when you are feeling better.
== END 2019-04-07 20:27 | disposition home or self-care (01) ==
LOC: ED 19:34
DX: M54.42 Lumbago with sciatica, left side (principal); R03.0 Elevated blood-pressure reading, without diagnosis of hypertension
CPT/HCPCS: 96372; 99283; J1170

== ENCOUNTER 2019-04-12 18:58 | Emergency (ER) | payer OTHER ==
--- NOTE | 2019-04-12 19:51 | ED Physician Documentation ---
PD HPI DYSPNEA - Stated complaint Stated Complaint: SOB LEFT PX - Chief complaint Chief Complaint: Back Pain - History obtained from History obtained from: Patient - History of Present Illness Timing - onset: How many days ago (5) Timing - duration: Days (5) Timing - details: Abrupt onset Associated symptoms: Chest pain / discomfort. No: Fever, Cough Recently seen: Emergency Dept - Additional information Additional information: This is a 38-year-old woman who presents with her complains that she is back for her sciatica. She was seen here 5 days ago but today it got "really bad". She feels like there is a knife sticking into her butt cheek and radiating all the way down the lateral aspect of the calf. Her calf is tingly. She says she is pulled muscles and dislocated ribs in the past but this is the most severe pain she can remember. She was prescribed Percocet and prednisone but she did not take the full dose of the prednisone because she was vomiting. She is been taking ibuprofen 400 mg every 6 hours. She says she was doing okay until today when she was down on the floor cleaning and the pain just abruptly came on and she almost urinated on herself. She has not experienced urinary incontinence. 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 She is complaining of shortness of breath because of a dislocated rib that she was seen for a month ago and had a chest x-ray. She is not coughing. No fever. No rash other than a "heat rash" because of the pain. She denies dysuria. 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 : None HEENT: None Psych: None Musculoskeletal: None Derm: None - Past Surgical History Past Surgical History: Yes Ortho: Other - Present Medications Home Medications: Ambulatory Orders Medication Instructions Recorded Confirmed Propranolol [Inderal] 10 mg PO HS 06/26/13 03/17/19 Ethynodiol D-Ethinyl Estradiol 1 tab PO DAILY 04/24/16 03/17/19 [Zovia 1-35E Tablet] Sumatriptan Succinate [Imitrex] 50 mg PO ONCE PRN #14 tablet 04/30/17 03/17/19 Oxycodone HCl/Acetaminophen 1 - 2 each PO Q6H PRN #10 tablet 03/17/19 [Percocet 5-325 mg Tablet] Oxycodone HCl/Acetaminophen 1 - 2 each PO Q6H PRN #14 tablet 04/07/19 [Percocet 5-325 mg Tablet] RX: Lidocaine Patch 5% [Lidoderm 1 each PATCH DAILY #10 patch 04/12/19 Patch] - Allergies Allergies/Adverse Reactions: Allergies Allergy/AdvReac Type Severity Reaction Status Date / Time Penicillins Allergy Severe Rash Verified 04/12/19 19:09 amoxicillin [Amoxicillin] Allergy Mild Rash Verified 04/12/19 19:09 latex Allergy Hives Verified 04/12/19 19:09 cyclobenzaprine HCl * AdvReac Unknown Verified 04/12/19 19:09 [From Flexeril] - Social History Does the pt smoke?: No Smoking Status: Never smoker Does the pt drink ETOH?: No Does the pt have substance abuse?: Yes - Immunizations Immunizations are current?: Yes - POLST Patient has POLST: No PD ED PE NORMAL - Vitals Vital signs reviewed: Yes - General General: Alert and oriented X 3, Other (She is sitting in the exam chair supporting part of her weight with her arms. She will not put her left butt cheek down onto the bed.) - HEENT HEENT: Atraumatic - Respiratory Respiratory: No respiratory distress - Derm Derm: Normal color, Warm and dry, No rash - Neuro Neuro: Alert and oriented X 3, No motor deficit, No sensory deficit, Normal speech - Psych Psych: Normal mood, Normal affect Results - Vitals Vitals: Vital Signs - 24 hr 04/12/19 04/12/19 19:06 20:48 Temperature 36.5 C Heart Rate 102 H 106 H Respiratory 18 20 Rate Blood Pressure 129/86 H 132/92 H O2 Saturation 100 98 Oxygen O2 Source Room air PD MEDICAL DECISION MAKING - ED course Complexity details: d/w patient, d/w family ED course: I discussed with the patient that I would not prescribe narcotics for chronic back issue and she needs to follow-up with her primary care provider for further pain management. She was given an injection of Toradol here tonight. Departure - Departure Disposition: 01 Home, Self Care Clinical Impression: Sciatica Condition: Good Instructions: Exercises Back Lower Back Stretch, ED Back Care Tips, ED Sciatica Follow-Up: Panfilo Pope DO [Provider Admit Priv/Credential] - Prescriptions: RX: Lidocaine Patch 5% [Lidoderm Patch] 1 each PATCH DAILY #10 patch Comments: Trial of the lidocaine patches to see if that helps alleviate some of your discomfort. Stretching can also help to alleviate some of the pressure that is on the nerve. Take ibuprofen 4 tablets every 8 hours with food. You need to contact her primary care provider about further pain management. Return to the emergency department if you are developing weakness in the leg including foot d rop, you are unable to control your bowels or bladder or other problems arise Discharge Date/Time: 04/12/19 20:48
[2019-04-12] MEDS ORDERED: KETOROLAC 60 MG/2 ML VIAL IM STA (20:05)
[2019-04-12] MEDS ORDERED: HYDROmorphone 1 MG/ML CARPUJECT IM STA (20:05)
[2019-04-12] MEDS ORDERED: PROMETHAZINE 25 MG/1 ML VIAL IM STA ×2 (20:05→20:27)
[2019-04-12 20:50] VITALS: BP 132/92
== END 2019-04-12 20:48 | disposition home or self-care (01) ==
LOC: ED 18:58
DX: M54.32 Sciatica, left side (principal)
CPT/HCPCS: 96372; 99283; 99284; J1170

== ENCOUNTER 2019-05-16 17:29 | Emergency (ER) | payer OTHER ==
--- NOTE | 2019-05-16 19:31 | ED Physician Documentation ---
History of Present Illness - Stated complaint Stated Complaint: TOOTH PX - Chief complaint Chief Complaint: Heent - Additonal information Additional information: This is a 38-year-old female who presents with dental pain in the right upper p ortion of her mouth. She has had extensive dental work done in the past. She states that this pain developed over the last 24 to 48 hours, and has been worsening. She states that she has sharp pain that radiates upward from the tooth. She denies any fever, facial swelling, sinus pain. She called her dentist but they were not open today, so she presents here. 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 HEENT: None Psych: None Musculoskeletal: None Derm: None - Past Surgical History Past Surgical History: Yes Ortho: Other - Present Medications Home Medications: Ambulatory Orders Medication Instructions Recorded Confirmed Propranolol [Inderal] 10 mg PO HS 06/26/13 03/17/19 Ethynodiol D-Ethinyl Estradiol 1 tab PO DAILY 04/24/16 03/17/19 [Zovia 1-35E Tablet] Sumatriptan Succinate [Imitrex] 50 mg PO ONCE PRN #14 tablet 04/30/17 03/17/19 Oxycodone HCl/Acetaminophen 1 - 2 each PO Q6H PRN #10 tablet 03/17/19 [Percocet 5-325 mg Tablet] Oxycodone HCl/Acetaminophen 1 - 2 each PO Q6H PRN #14 tablet 04/07/19 [Percocet 5-325 mg Tablet] Lidocaine Patch 5% [Lidoderm Patch] 1 each PATCH DAILY #10 patch 04/12/19 Clindamycin HCl [Clindamycin 300MG 300 mg PO Q6H #28 capsule 05/16/19 CAP] Oxycodone HCl/Acetaminophen 1 - 2 each PO Q6H PRN #7 tablet 05/16/19 [Percocet 5-325 mg Tablet] - Allergies Allergies/Adverse Reactions: Allergies Allergy/AdvReac Type Severity Reaction Status Date / Time Penicillins Allergy Severe Rash Verified 04/12/19 19:09 amoxicillin [Amoxicillin] Allergy Mild Rash Verified 04/12/19 19:09 latex Allergy Hives Verified 04/12/19 19:09 cyclobenzaprine HCl * AdvReac Unknown Verified 04/12/19 19:09 [From Flexeril] - Social History Does the pt smoke?: No Smoking Status: Never smoker Does the pt drink ETOH?: No Does the pt have substance abuse?: Yes - Immunizations Immunizations are current?: Yes - POLST Patient has POLST: No PD ED PE NORMAL - Vitals Vital signs reviewed: Yes - General General: Alert and oriented X 3, No acute distress - HEENT HEENT: Other (No drainable abscess, or mass. Back right molar is tender to palpation. This appears to have a crown over top of it.) - Neck Neck: Supple, no meningeal sign - Cardiac Cardiac: RRR - Respiratory Respiratory: Clear bilaterally - Derm Derm: Warm and dry - Neuro Neuro: Alert and oriented X 3 - Psych Psych: Normal mood, Normal affect Results - Vitals Vitals: Vital Signs - 24 hr 05/16/19 05/16/19 17:39 20:01 Temperature 36.7 C Heart Rate 80 80 Respiratory 16 18 Rate Blood Pressure 127/99 H 128/76 O2 Saturation 99 99 Oxygen O2 Source Room air PD MEDICAL DECISION MAKING - ED course Complexity details: considered differential (Dental pain, pulpitis, carry, odontogenic infection) ED course: Patient presents with dental pain, there is no drainable abscess or signs of serious infection on my exam. Based on her description of the pain I am highly suspicious for infection/pulpitis. Patient was given a dose of clindamycin as well as pain medication here. She has an allergy to penicillins. She was prescribed a course of clindamycin, as well as a small number of Percocet to be used if her pain is not controlled with ibuprofen. I discussed the risk of narcotic medications. I also discussed the need for close follow-up with her dental provider. Return precautions were discussed and patient was discharged home in the care of her partner Departure - Departure Disposition: 01 Home, Self Care Clinical Impression: Pain, dental Condition: Good Instructions: ED Tooth Pain Follow-Up: Panfilo Pope DO [Primary Care Provider] - Prescriptions: Clindamycin HCl [Clindamycin 300MG CAP] 300 mg PO Q6H #28 capsule Oxycodone HCl/Acetaminophen [Percocet 5-325 mg Tablet] 1 - 2 each PO Q6H PRN #7 tablet PRN Reason: pain Comments: You were seen today for dental pain. This is usually caused by an infection in the tooth. Please follow-up with your dentist as soon as possible. Take the antibiotic as prescribed, this will treat underlying tooth infection which is the likely cause of your pain. Also continue to take the ibuprofen for pain control. If this is not effective you may try the Percocet for breakthrough pain. Do not drink alcohol or drive while taking narcotic pain medication. Note that many narcotic pain relievers also contain Tylenol/acetaminophen. Please ensure that your total dose of acetaminophen from all sources does not exceed 3 g (3000 mg) per day. You may get constipated while on this medication. Take a stool softener such as Colace twice a day while you are on it. Also add an [id number] laxative such as senna or MiraLAX on any day that you do not have a bowel movement. If you received a narcotic pain medication or sedative while in the emergency department, do not drive for the next 24 hours. Discharge Date/Time: 05/16/19 20:21
[2019-05-16] MEDS ORDERED: CLINDAMYCIN 150 MG CAPSULE PO STA (19:51)
[2019-05-16] MEDS ORDERED: oxyCODONE 5 MG TABLET PO STA (19:51)
[2019-05-16 20:02] VITALS: BP 128/76
== END 2019-05-16 20:21 | disposition home or self-care (01) ==
LOC: ED 17:29
DX: K08.89 Other specified disorders of teeth and supporting structures (principal); Z88.0 Allergy status to penicillin
CPT/HCPCS: 99282; 99283; A9270

== ENCOUNTER 2019-06-09 18:16 | Emergency (ER) | payer OTHER ==
[2019-06-09 18:23] VITALS: BP 134/85
--- NOTE | 2019-06-09 19:53 | ED Physician Documentation ---
PD HPI BACK PAIN - Stated complaint Stated Complaint: LOWER BACK PAIN / NUMBNESS - Chief complaint Chief Complaint: Ext Problem - History obtained from History obtained from: Patient - History of Present Illness Timing - onset: Today Timing - duration: Hours (18) Timing - details: Abrupt onset Pain level now: 7 Location: Lower Quality: Pain Associated symptoms: Numbness (Lateral left lower leg). No: Fever, Weakness, Incontinent of urine, Unable to urinate Improves with: Meds Worsened by: Movement, Lifting Similar symptoms before: No diagnosis Recently seen: Not recently seen - Additional information Additional information: This is a 38-year-old woman who presents with her significant other complaints that her "sciatic has gone whackado". It woke her up at 4 AM this morning from sleep. She is been taking Tylenol and Advil "all day" to bring the pain down a little bit but still 6-7 out of 10 right now. She has not experienced issues with this in the past and went to her primary care provider had a manipulation done a couple months ago that seemed to help tremendously. She has another appointment scheduled with him on July 01. No prior imaging studies. The pain is in the left buttock and radiates down the lateral left leg and she feels a weird sensory sensation along the left lower leg like she is being scratched. She denies incontinence. She is taking Advil 4 tablets at a time and Tylenol 1 g. 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 HEENT: None Psych: None Musculoskeletal: None Derm: None - Past Surgical History Past Surgical History: Yes Ortho: Other - Present Medications Home Medications: Ambulatory Orders Medication Instructions Recorded Confirmed Propranolol [Inderal] 10 mg PO HS 06/26/13 03/17/19 Ethynodiol D-Ethinyl Estradiol 1 tab PO DAILY 04/24/16 03/17/19 [Zovia 1-35E Tablet] Sumatriptan Succinate [Imitrex] 50 mg PO ONCE PRN #14 tablet 04/30/17 03/17/19 Oxycodone HCl/Acetaminophen 1 - 2 each PO Q6H PRN #10 tablet 03/17/19 [Percocet 5-325 mg Tablet] Oxycodone HCl/Acetaminophen 1 - 2 each PO Q6H PRN #14 tablet 04/07/19 [Percocet 5-325 mg Tablet] Lidocaine Patch 5% [Lidoderm Patch] 1 each PATCH DAILY #10 patch 04/12/19 Clindamycin HCl [Clindamycin 300MG 300 mg PO Q6H #28 capsule 05/16/19 CAP] Oxycodone HCl/Acetaminophen 1 - 2 each PO Q6H PRN #7 tablet 05/16/19 [Percocet 5-325 mg Tablet] Hydrocodone/Acetaminophen 1 - 2 each PO Q6H PRN #10 tablet 06/09/19 [Hydrocodon-Acetaminophen 5-325] Lidocaine Patch 5% [Lidoderm Patch] 1 each TOP DAILY #10 patch 06/09/19 - Allergies Allergies/Adverse Reactions: Allergies Allergy/AdvReac Type Severity Reaction Status Date / Time Penicillins Allergy Severe Rash Verified 06/09/19 18:18 amoxicillin [Amoxicillin] Allergy Mild Rash Verified 06/09/19 18:18 latex Allergy Hives Verified 06/09/19 18:18 cyclobenzaprine HCl * AdvReac Unknown Verified 06/09/19 18:18 [From Flexeril] - Social History Does the pt smoke?: No Smoking Status: Never smoker Does the pt drink ETOH?: No Does the pt have substance abuse?: Yes - Immunizations Immunizations are current?: Yes - POLST Patient has POLST: No PD ED PE NORMAL - Vitals Vital signs reviewed: Yes - General General: Alert and oriented X 3, No acute distress, Well developed/nourished - HEENT HEENT: Atraumatic - Respiratory Respiratory: No respiratory distress - Back Back: No CVA TTP, Other (Tenderness over the left buttock distal to the SI joint.) - Derm Derm: Normal color, Warm and dry, No rash - Neuro Neuro: Alert and oriented X 3, 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 She is taking maximum doses of Tylenol and Advil already. Of written prescription for lidocaine patch which she is used in the past and a prescription for 10 hydrocodone tablets. Follow- up with her primary care provider for further management and further pain control as needed. Departure - Departure Disposition: Home, Self Care Clinical Impression: Sciatica Condition: Good Instructions: ED Back Care Tips, ED Sciatica Follow-Up: Panfilo Pope DO [Primary Care Provider] - Prescriptions: Hydrocodone/Acetaminophen [Hydrocodon-Acetaminophen 5-325] 1 - 2 each PO Q6H PRN #10 tablet PRN Reason: pain Lidocaine Patch 5% [Lidoderm Patch] 1 each TOP DAILY #10 patch Comments: Avoid lifting, stooping, twisting or bending. Continue to take Advil 4 tablets every 8 hours with food as needed for pain. Use the lidocaine patches. Give a prescription for a few doses of hydrocodone to use at night if he needed to help you sleep. Do not take those during the daytime drive or operate machinery. Do not take additional Tylenol with these. Follow-up with your doctor on July 01 as scheduled. Return if you have increasing pain, develop leaking of the bowels or bladder or you develop weakness in the leg. Forms: Activity restrictions
[2019-06-09] MEDS ORDERED: HYDROcod/ACETAM 5/325 MG TABLET PO STA (20:09)
== END 2019-06-09 20:20 | disposition home or self-care (01) ==
LOC: ED 18:16
DX: M54.32 Sciatica, left side (principal)
CPT/HCPCS: 99283; 99284; A9270

== ENCOUNTER 2019-08-17 17:43 | Emergency (ER) | payer OTHER ==
[2019-08-17] MEDS ORDERED: DEXAMETHASONE 10 MG/ML VIAL IM STA (18:37)
[2019-08-17] MEDS ORDERED: diazePAM INJ 5 MG/ML SYRINGE IM STA (18:37)
[2019-08-17] MEDS ORDERED: KETOROLAC 60 MG/2 ML VIAL IM STA (18:37)
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
[2019-08-17] MEDS ORDERED: HYDROcod/ACETAM 5/325 MG TABLET PO STA (19:34)
[2019-08-17 20:22] VITALS: BP 136/84
== END 2019-08-17 20:26 | disposition home or self-care (01) ==
LOC: ED 17:43
DX: M54.42 Lumbago with sciatica, left side (principal)
CPT/HCPCS: 96372; 99283; 99284; A9270